=== PATIENT | female | born 1950 | race Caucasian/White ===

== ENCOUNTER 2017-09-10 09:58 | Emergency (ER) | payer OTHER ==
[~2017-09-10 09:58] MED LIST: ALEN1TAB48 PO; ARIC5TAB PO; ATOR20TA15 PO; ATOR20TA42 PO; GABA100C4 PO; LEVE500 PO; MULTTAB67 PO; NAPR220C22 PO; OMEP20TA93 PO; OMPR20CCR PO; VALP250 PO; VITA10002 PO; VITA100020 PO; VITA20003 PO
[2017-09-10 10:04] VITALS: BP 169/105; PULSE 97; RESP 16; TEMP 97.7; O2SAT 97
[2017-09-10] MEDS ORDERED: DONE5TAB7 PO (10:22)
--- NOTE | 2017-09-10 11:10 | RADRPT ---
EXAM DATE/TIME: 09/10/2017 10:59 [facility] COMPARISON: CT BRAIN W/O CONTRAST, February 12, 2017, 19:03. INDICATIONS : Hands trembling for two days. RADIATION DOSE: 58.92 CTDIvol (mGy) MEDICAL HISTORY : Hypertension. Gastroesophageal reflux disease. Glioblastoma. SURGICAL HISTORY : Craniotomy. section. Glioblastoma tumor removed ten years ago times two. ENCOUNTER: Initial ACUITY: 2 days PAIN SCALE: 0/10 LOCATION: cranial TECHNIQUE: Multiple contiguous axial images were obtained of the head. Using automated exposure control and adj ustment of the mA and/or kV according to patient size, radiation dose was kept as low as reasonably a chievable to obtain optimal diagnostic quality images. DICOM format image data is available electro nically for review and comparison. FINDINGS: Diffuse encephalomalacia is noted involving the left cerebral hemisphere. Ex vacuo dilatation is note d involving the left lateral ventricle. The findings are stable compared to previous examination in J francisca 2017. No acute infarct, acute hemorrhage, midline shift or extra-axial fluid collections are note d. Left sided craniotomy changes are again noted and stable. CONCLUSION: 1. No significant change compared to 02/12/17. 2. No acute infarct, acute hemorrhage, midline shift or extra-axial fluid collections. Jeremias Monk MD on September 10, 2017 at 11:06 Board Certified Radiologist. This report was verified electronically.
--- NOTE | 2017-09-10 11:20 | PD ---
HPI Chief Complaint: General Weakness Time Seen by Provider: 10:09 Travel History International Travel<30 days: No Contact w/Intl Traveler<30days: No Traveled to known affect area: No History of Present Illness HPI This 67-year-old female is brought for generalized weakness. She has a history of glioblastoma deformed since 2003. She had several surgeries. She has had chemotherapy and radiation. She is cared for at home by her . She has right-sided weakness. She has a history of seizures though she has not had seizures recently. She has poor balance. She sees Dr. Phillips and Dr. Giles. She has chronic problems with speech. She walks with assistance. Her says she has not been sleeping well recently because there are people that live close to her that are very noisy at night. He feels this may be causing her to feel weaker than usual. She has occasional tremors of her arms. Her who is her caregiver thinks that she is weaker than usual due to not sleeping well due to the noise in her apartment [facility] Past Medical History Arthritis: Yes Asthma: No Autoimmune Disease: No Blood Disorders: No Heart Rhythm Problems: No Cancer: Yes (GLIOBLASTOMA MULTIFORME) Cardiovascular Problems: Yes High Cholesterol: Yes Chemotherapy: No (2004) Chest Pain: No Congestive Heart Failure: No COPD: No Cerebrovascular Accident: Yes Diabetes: No Patient Takes Glucophage: No Diminished Hearing: No Endocrine: No Gastrointestinal Disorders: Yes GERD: Yes Genitourinary: No Headaches: No Hiatal Hernia: No Hypertension: Yes Immune Disorder: No Implanted Vascular Access Dvce: No Kidney Stones: No Musculoskeletal: Yes Neurologic: Yes Psychiatric: No Reproductive: No Respiratory: Yes Immunizations Current: Yes Migraines: No Radiation Therapy: Yes (2004) Renal Failure: No Seizures: Yes Sleep Apnea: No Thyroid Disease: No Ulcer: No ?: Not Menopausal: Yes : 1 Para: 1 Ovarian Cysts: Yes Past Surgical History Abdominal Surgery: No AICD: No Arteriovenous Shunt: No Cardiac Surgery: No Section: Yes Ear Surgery: No Endocrine Surgery: No Eye Surgery: No Genitourinary Surgery: No Gynecologic Surgery: No Insulin Pump: No Joint Replacement: No Neurologic Surgery: Yes (BRAIN TUMOR REMOVED X2 10 YEARS AGO) Oral Surgery: No Pacemaker: No Thoracic Surgery: No Other Surgery: Yes Social History Alcohol Use: No Tobacco Use: No Substance Use: No Allergies-Medications (Allergen,Severity, Reaction): Coded Allergies: latex (Unverified Allergy, Severe, Rash, 09/10/17) penicillin G (Unverified Allergy, Severe, 09/10/17) phenytoin (Unverified Allergy, Severe, Rash, 09/10/17) Reported Meds & Prescriptions Reported Meds & Active Scripts Active Depakene (Valproic Acid) 250 Mg Cap 250 Mg PO Q12HR Vitamin B-12 Extended Rel (Miscellaneous Medication) 1,000 Mcg Tab 1,000 Mcg PO DAILY 30 Days Reported Donepezil 5 Mg Tab 5 Mg PO HS Vitamin D (Cholecalciferol) 2,000 Unit Tab 1 Tab PO DAILY Vitamin B-12 (Cyanocobalamin) 1,000 Mcg Tab 1,000 Mcg PO DAILY Omeprazole 20 Mg Tab 20 Mg PO DAILY Gabapentin 100 Mg Cap 100 Mg PO TID Alendronate (Alendronate Sodium) 70 Mg Tab 70 Mg PO Q7D Atorvastatin (Atorvastatin Calcium) 20 Mg Tab 20 Mg PO HS Multiple Vitamin 1 Tab 2 Tab PO DAILY Review of Systems General / Constitutional: No: Fever, Chills Eyes: No: Diploplia HENT: Positive: Headaches, No: Sore Throat Cardiovascular: No: Chest Pain or Discomfort Respiratory: No: Cough Gastrointestinal: No: Nausea, Vomiting Genitourinary: No: Urgency, Dysuria Skin: No Rash, No Itching Neurologic: Positive: Weakness, No: Dizziness Endocrine: No: Cold Intolerance Hematologic/Lymphatic: No: Easy Bruising Physical Exam Narrative GENERAL: Well-developed female SKIN: Focused skin assessment warm/dry. HEAD: Atraumatic. Normocephalic. EYES: Pupils equal and round. No scleral icterus. No injection or drainage. ENT: No nasal bleeding or discharge. Mucous membranes pink and moist. NECK: Trachea midline. No JVD. CARDIOVASCULAR: Regular rate and rhythm. No murmur appreciated. RESPIRATORY: No accessory muscle use. Clear to auscultation. Breath sounds equal bilaterally. GASTROINTESTINAL: Abdomen soft, non-tender, nondistended. Hepatic and splenic margins not palpable. MUSCULOSKELETAL: No obvious deformities. No clubbing. No cyanosis. No edema. NEUROLOGICAL: Awake and speech is extremely limited. sHe follows some simple commands but ignores others, she is weaker on the right side than the left Data Data Last Documented VS Vital Signs Date Time Temp Pulse Resp B/P (MAP) Pulse Ox O2 Delivery O2 Flow Rate FiO2 09/10/17 11:47 75 16 171/79 (109) 96 Room Air 09/10/17 10:04 97.7 Orders Orders Complete Blood Count With Diff (09/10/17 10:35) Comprehensive Metabolic Panel (09/10/17 10:35) Valproic Acid (Depakene) (09/10/17 10:35) Ct Brain W/O Iv Contrast(Rout) (09/10/17 10:35) Labs Laboratory Tests Test 09/10/17 11:30 White Blood Count 6.1 TH/MM3 Red Blood Count 4.22 MIL/MM3 Hemoglobin 12.6 GM/DL Hematocrit 36.8 % Mean Corpuscular Volume 87.2 FL Mean Corpuscular Hemoglobin 29.9 PG Mean Corpuscular Hemoglobin Concent 34.3 % Red Cell Distribution Width 12.2 % Platelet Count 277 TH/MM3 Mean Platelet Volume 8.5 FL Neutrophils (%) (Auto) 69.4 % Lymphocytes (%) (Auto) 18.4 % Monocytes (%) (Auto) 7.9 % Eosinophils (%) (Auto) 1.6 % Basophils (%) (Auto) 2.7 % Neutrophils # (Auto) 4.2 TH/MM3 Lymphocytes # (Auto) 1.1 TH/MM3 Monocytes # (Auto) 0.5 TH/MM3 Eosinophils # (Auto) 0.1 TH/MM3 Basophils # (Auto) 0.2 TH/MM3 CBC Comment DIFF FINAL Differential Comment Blood Urea Nitrogen 13 MG/DL Creatinine 0.78 MG/DL Random Glucose 89 MG/DL Total Protein 7.0 GM/DL Albumin 3.5 GM/DL Calcium Level 8.6 MG/DL Alkaline Phosphatase 124 U/L Aspartate Amino Transf (AST/SGOT) 16 U/L Alanine Aminotransferase (ALT/SGPT) 22 U/L Total Bilirubin 0.8 MG/DL Sodium Level 135 MEQ/L Potassium Level 4.2 MEQ/L Chloride Level 100 MEQ/L Carbon Dioxide Level 29.4 MEQ/L Anion Gap 6 MEQ/L Estimat Glomerular Filtration Rate 73 ML/MIN [facility] Medical Decision Making Medical Screen Exam Complete: Yes Emergency Medical Condition: Yes Medical Record Reviewed: Yes Differential Diagnosis Differential includes subdural, progression of tumor, electrolyte imbalance, Narrative Course CT is unchanged from previous CTs. Lab work is unremarkable. A pruritic acid level has been ordered and is pending. Patient is stable for discharge. Her who seems very familiar with her feels that she is a little bit weaker than usual because of the lack of sleep. I will prescribe a trial of Restoril. He says that he is working on moving to get her away from the noise Diagnosis Primary Impression: Glioblastoma multiforme of brain Additional Impression: Insomnia Scripts Temazepam (Restoril) 7.5 Mg Cap 7.5 MG PO HS Y for INSOMNIA, #10 CAP 0 Refills Prov: Paulo Mathur MD 09/10/17 Disposition: DISCHARGE HOME Condition: Stable Paulo Mathur MD Sep 10, 2017 11:20
[2017-09-10 11:32] VITALS: BP 200/91; PULSE 74; RESP 16; O2SAT 97
[2017-09-10 11:45] LABS: AUTOMATED NEUTROPHIL # 4.2 TH/MM3 (1.8-7.7); BASOPHIL # 0.2 TH/MM3 (0-0.2); BASOPHIL % 2.7 % (0.0-2.0); CHLORIDE 100 MEQ/L (98-107); EOSINOPHIL # 0.1 TH/MM3 (0-0.4); EOSINOPHIL % 1.6 % (0.0-4.0); HEMATOCRIT 36.8 % (35.0-46.0); HEMOGLOBIN 12.6 GM/DL (11.6-15.3); LYMPH % 18.4 % (9.0-44.0); LYMPHOCYTE # 1.1 TH/MM3 (1.0-4.8); MEAN CELL VOLUME 87.2 FL (80.0-100.0); MEAN CORPUSCULAR HEMOGLOBIN 29.9 PG (27.0-34.0); MEAN CORPUSCULAR HGB CONC 34.3 % (32.0-36.0); MEAN PLATELET VOLUME 8.5 FL (7.0-11.0); MONO % 7.9 % (0.0-8.0); MONOCYTE # 0.5 TH/MM3 (0-0.9); NEUT % 69.4 % (16.0-70.0); PLATELET COUNT 277 TH/MM3 (150-450); RED BLOOD COUNT 4.22 MIL/MM3 (4.00-5.30); RED CELL DISTRIBUTION WIDTH 12.2 % (11.6-17.2); SODIUM (NA) 135 MEQ/L (136-145); WHITE BLOOD COUNT 6.1 TH/MM3 (4.0-11.0)
[2017-09-10 11:47] VITALS: BP 171/79; PULSE 75; RESP 16; O2SAT 96
[2017-09-10 11:48] LABS: CALCIUM 8.6 MG/DL (8.5-10.1); GLUCOSE,RANDOM 89 MG/DL (74-106)
[2017-09-10 11:49] LABS: ALBUMIN 3.5 GM/DL (3.4-5.0); BICARBONATE 29.4 MEQ/L (21.0-32.0); BLOOD UREA NITROGEN 13 MG/DL (7-18)
[2017-09-10 11:52] LABS: ALT (GPT) 22 U/L (10-53); AST (GOT) 16 U/L (15-37); CREATININE 0.78 MG/DL (0.50-1.00); GLOMERULAR FILTRATION RATE 73 ML/MIN (>89)
[2017-09-10 11:54] LABS: TOTAL BILIRUBIN ADULT 0.8 MG/DL (0.2-1.0)
[2017-09-10 11:55] LABS: ALKALINE PHOSPHATASE 124 U/L (45-117)
[2017-09-10] MEDS ORDERED: TEMA7.5C9 PO (12:59)
[2017-09-10 13:11] VITALS: BP 170/78
== END 2017-09-10 13:27 | disposition home or self-care (01) ==
LOC: PHED 09:58
DX: C71.9 Malignant neoplasm of brain, unspecified (principal); G47.00 Insomnia, unspecified; E78.00 Pure hypercholesterolemia, unspecified; I10 Essential (primary) hypertension; K21.9 Gastro-esophageal reflux disease without esophagitis; Z92.21 Personal history of antineoplastic chemotherapy; Z92.3 Personal history of irradiation; Z86.73 Personal history of transient ischemic attack (TIA), and cerebral infarction without residual deficits
CPT/HCPCS: 70450; 80053; 80164; 85025; 99284

== ENCOUNTER 2017-10-01 14:41 | Emergency (ER) | payer OTHER ==
[~2017-10-01] VITALS: Ht 167.6 cm; Wt 86.0 kg
[~2017-10-01 14:41] MED LIST changes: -HYDR-3516 PO
[2017-10-01 14:45] VITALS: BP 144/81; PULSE 98; RESP 18; TEMP 98.2; O2SAT 94
--- NOTE | 2017-10-01 15:09 | PD ---
HPI Chief Complaint: Fall Time Seen by Provider: 14:53 Travel History International Travel<30 days: No Contact w/Intl Traveler<30days: No Traveled to known affect area: No History of Present Illness HPI 67-year-old female that presents to the ED for evaluation of right ankle and foot pain. Patient has had this since injury today. Per patient she stepped on her foot and she's been having pain since. 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 Her had a get about. She denies falling or hitting her head. No pain anywhere else. Mainly the pain is in the foot itself. No urinary or bowel movement issues. No back or neck pain. Pain. Patient is 6 out of 10. Has not seen anybody for this. Injury occurred this morning. No prior injuries to this foot. PFSH Past Medical History Arthritis: Yes Asthma: No Autoimmune Disease: No Blood Disorders: No Heart Rhythm Problems: No Cancer: Yes (GLIOBLASTOMA MULTIFORME) Cardiovascular Problems: Yes High Cholesterol: Yes Chemotherapy: Yes Chest Pain: No Congestive Heart Failure: No COPD: No Cerebrovascular Accident: Yes Diabetes: No Diminished Hearing: No Endocrine: No Gastrointestinal Disorders: Yes GERD: Yes Genitourinary: No Headaches: No Hiatal Hernia: No Hypertension: Yes Immune Disorder: No Implanted Vascular Access Dvce: No Kidney Stones: No Musculoskeletal: Yes Neurologic: Yes Psychiatric: No Reproductive: No Respiratory: Yes Immunizations Current: Yes Migraines: No Radiation Therapy: Yes (2004) Renal Failure: No Seizures: Yes Sleep Apnea: No Thyroid Disease: No Ulcer: No ?: Not Menopausal: Yes : 1 Para: 1 Ovarian Cysts: Yes Past Surgical History Abdominal Surgery: No AICD: No Arteriovenous Shunt: No Cardiac Surgery: No Section: Yes Ear Surgery: No Endocrine Surgery: No Eye Surgery: No Genitourinary Surgery: No Gynecologic Surgery: No Insulin Pump: No Joint Replacement: No Neurologic Surgery: Yes (BRAIN TUMOR REMOVED X2 10 YEARS AGO) Oral Surgery: No Pacemaker: No Thoracic Surgery: No Other Surgery: Yes Social History Alcohol Use: No Tobacco Use: No Substance Use: No Allergies-Medications (Allergen,Severity, Reaction): Coded Allergies: latex (Unverified Allergy, Severe, Rash, 09/10/17) penicillin G (Unverified Allergy, Severe, 09/10/17) phenytoin (Unverified Allergy, Severe, Rash, 2/5/18) Reported Meds & Prescriptions Reported Meds & Active Scripts Active Restoril (Temazepam) 7.5 Mg Cap 7.5 Mg PO HS PRN Depakene (Valproic Acid) 250 Mg Cap 250 Mg PO Q12HR Vitamin B-12 Extended Rel (Miscellaneous Medication) 1,000 Mcg Tab 1,000 Mcg PO DAILY 30 Days Reported Donepezil 5 Mg Tab 5 Mg PO HS Vitamin D (Cholecalciferol) 2,000 Unit Tab 1 Tab PO DAILY Vitamin B-12 (Cyanocobalamin) 1,000 Mcg Tab 1,000 Mcg PO DAILY Omeprazole 20 Mg Tab 20 Mg PO DAILY Gabapentin 100 Mg Cap 100 Mg PO TID Alendronate (Alendronate Sodium) 70 Mg Tab 70 Mg PO Q7D Atorvastatin (Atorvastatin Calcium) 20 Mg Tab 20 Mg PO HS Multiple Vitamin 1 Tab 2 Tab PO DAILY Review of Systems Except as stated in HPI: all other systems reviewed are Neg Physical Exam Narrative GENERAL: SKIN: Warm and dry. HEAD: Atraumatic. Normocephalic. EYES: Pupils equal and round. No scleral icterus. No injection or drainage. ENT: No nasal bleeding or discharge. Mucous membranes pink and moist. Tongue is midline. No uvula deviation. NECK: Trachea midline. No JVD. CARDIOVASCULAR: Regular rate and rhythm. No murmurs, S3, S4. RESPIRATORY: No accessory muscle use. Clear to auscultation. Breath sounds equal bilaterally. GASTROINTESTINAL: Abdomen soft, non-tender, nondistended. Hepatic and splenic margins not palpable. MUSCULOSKELETAL: Extremities without clubbing, cyanosis, or edema. No obvious deformities. Full range of motion of the right lower extremity. 2+ pulses bilaterally. Some weakness noted on the computer to the left this appears to be chronic. Patient does have some bruising noted on the dorsal aspect of the right foot in the midfoot. Some reproducible pain on the mid plantar foot. Sensation intact bilaterally. No open sores. NEUROLOGICAL: Awake and alert. No obvious cranial nerve deficits. Motor grossly within normal limits. Five out of 5 muscle strength in the arms and legs. Normal speech. PSYCHIATRIC: Appropriate mood and affect; insight and judgment normal. Data Data Last Documented VS Vital Signs Date Time Temp Pulse Resp B/P (MAP) Pulse Ox O2 Delivery O2 Flow Rate FiO2 10/01/17 14:45 98.2 98 18 144/81 (102) 94 Orders Orders Ankle, Complete ([id number]) (10/01/17 ) Foot, Complete ([id number]) (10/01/17 ) MDM Medical Decision Making Medical Screen Exam Complete: Yes Emergency Medical Condition: Yes Medical Record Reviewed: Yes Differential Diagnosis Fracture versus sprain versus strain versus bruise versus contusion Narrative Course 67-year-old female that presents to the ED for evaluation of right foot injury. Patient was properly examined and was found to have signs and symptoms concerning for possible bony injuries. X-rays were done. Gael Reyes Oct 01, 2017 15:09
--- NOTE | 2017-10-01 15:24 | RADRPT ---
EXAM DATE/TIME: 10/01/2017 14:53 [facility] COMPARISON: No previous studies available for comparison. INDICATIONS : Right ankle pain and bruising post fall. MEDICAL HISTORY : Hypertension. Gastroesophageal reflux disease. Glioblastoma. SURGICAL HISTORY : Craniotomy. section. Glioblastoma tumor removed ten years ago ENCOUNTER: Initial ACUITY: 1 day PAIN SCORE: 5/10 LOCATION: Right lateral ankle FINDINGS: 3 views of the right ankle demonstrate no fracture or dislocation. The bones are undermineralized. An kle mortise is intact. There are mild degenerative changes in the midfoot. There is lateral and anter ior ankle soft tissue swelling with subcutaneous edema. CONCLUSION: Subcutaneous edema and soft tissue swelling on the lateral and anterior aspect of the right ankle. No fracture is identified. Lev Sylvester MD on October 01, 2017 at 15:22 Board Certified Radiologist. This report was verified electronically.
--- NOTE | 2017-10-01 15:26 | RADRPT ---
EXAM DATE/TIME: 10/01/2017 14:59 [facility] COMPARISON: No previous studies available for comparison. INDICATIONS : Right foot pain and bruising post fall MEDICAL HISTORY : Hypertension. Gastroesophageal reflux disease. Glioblastoma SURGICAL HISTORY : Craniotomy. section. Glioblastoma tumor removed ten years ago ENCOUNTER: Initial ACUITY: 1 day PAIN SCORE: 6/10 LOCATION: Right anterior foot FINDINGS: 3 views of the right foot demonstrate a transverse nondisplaced fracture of the proximal fourth metat arsal metaphysis. There is a suspected fracture of the proximal third metatarsal metaphysis as well. Lisfranc joint appears intact. No dislocation is present. There is soft tissue swelling over the dors al aspect of the foot. CONCLUSION: There are transverse nondisplaced fractures of the proximal third and fourth metatarsal metaphyses. Lev Sylvester MD on October 01, 2017 at 15:23 Board Certified Radiologist. This report was verified electronically.
[2017-10-01] MEDS ORDERED: HYDR-3516 PO (16:08)
--- NOTE | 2017-10-01 16:18 | PD ---
Physical Exam Date Seen by Provider: Oct 01, 2017 Time Seen by Provider: 16:15 Narrative This is a continuation of my previous note. Please refer to my previous note. Unfortunately my attendings and my note before I could finish it. Again this is just a continuation of the previous note. Data Data Last Documented VS Vital Signs Date Time Temp Pulse Resp B/P (MAP) Pulse Ox O2 Delivery O2 Flow Rate FiO2 10/01/17 14:45 98.2 98 18 144/81 (102) 94 Orders Orders Ankle, Complete ([id number]) (10/01/17 ) Foot, Complete ([id number]) (10/01/17 ) Ed Discharge Order (10/01/17 16:14) MDM Medical Record Reviewed: Yes Supervised Visit with CARLOS EDUARDO: No Interpretation(s) X-ray of the right foot did show a nondisplaced fracture of the third and fourth metatarsals X-ray of the right ankle show no sign of bony injury with soft tissue swelling. Differential Diagnosis Fracture versus sprain versus strain versus bruise versus contusion Narrative Course 67-year-old female that presents to the ED for evaluation of injury to her right foot. Patient was properly examined and was found to have signs and symptoms concerning for fractures. X-rays were ordered and did show fractures. I discussed the case with Dr. Henderson who recommends walking boot. Partially with no have a walking boot in this hospital. I was told by charge nurse that patient can get the walking boot at the main hospital if given the [employer] referral form. This was given to the patient. Patient was given a prescription for Lortab. Case was discussed in my attending who agrees with plan. Patient was told to follow with chief building inspector. See ED worsening symptoms. Follow up with PCP. Diagnosis Primary Impression: Metatarsal bone fracture Qualified Codes: S92.344A - Nondisplaced fracture of fourth metatarsal bone, right foot, initial encounter for closed fracture Referrals: Errol Ball DPM, Jessica Isabel DPM Patient Instructions: General Instructions Additional Instruction: Take medications as prescribed. Follow-up with PCP. See ED for any worsening symptoms. Do not drink or drive while taking pain medication. Apply ice or heat as needed for pain Med/Other Pt SpecificInfo: Prescription(s) given Scripts Hydrocodone/Acetaminophen (Hydrocodone-Acetamin 5-325 mg) 5 Mg-325 Mg Tablet 1 TAB PO Q6HR Y for PAIN SCALE 1 TO 10, #12 Prov: Mary Jo Busby MD 10/01/17 Disposition: 01 DISCHARGE HOME Condition: Stable Gael Reyes Oct 01, 2017 16:18
== END 2017-10-01 16:50 | disposition home or self-care (01) ==
LOC: PHEFT 14:41
DX: S92.344A Nondisplaced fracture of fourth metatarsal bone, right foot, initial encounter for closed fracture (principal); W51.XXXA Accidental striking against or bumped into by another person, initial encounter
CPT/HCPCS: 73610; 73630; 99283

== ENCOUNTER → 2017-10-01 | Outpatient (CLI) | payer OTHER ==
[~2017-10-01] MED LIST changes: -ARIC5TAB PO; -ATOR20TA42 PO; +DONE5TAB7 PO; +HYDR-3516 PO; -LEVE500 PO; -NAPR220C22 PO; -OMPR20CCR PO; +TEMA7.5C9 PO
== END ==
LOC: HORT 17:22
PROVIDERS: ATTEND Physician Assistant Medical
DX: Z46.89 Encounter for fitting and adjustment of other specified devices (principal)
CPT/HCPCS: L2114

== ENCOUNTER 2017-10-06 18:33 | Observation (INO) | payer OTHER ==
[~2017-10-06] VITALS: Ht 152.4 cm; Wt 89.9 kg
[~2017-10-06 18:33] MED LIST changes: +HYDR-3516 PO
[2017-10-06 18:39] VITALS: BP 138/77; PULSE 87; RESP 18; TEMP 98.3; O2SAT 97
--- NOTE | 2017-10-06 19:45 | PD ---
HPI Chief Complaint: Fall Time Seen by Provider: 18:39 Travel History International Travel<30 days: No Contact w/Intl Traveler<30days: No Traveled to known affect area: No History of Present Illness HPI 67-year-old female that presents to the ED for evaluation of mechanical fall. Patient has been seen here by me about a week ago for a fall that she had. Patient has a history of CVA and chronic deficits to the right side and she is supposed to have assistance when walking but she apparently does not follow these and still continues to move on her own and had a fall and had a fracture to her metatarsals. She was put in a walking boot by me and has been doing well since except she's had a couple falls since. She is using a walker and getting about but per significant other who takes care of the patient she's been more weak and having more falls for the past week. He is concerned because she is having a tremor that she's had on and off and she's actually been worked up by Dr. Singleton for seizures and is supposed to have an appointment next week for follow-up. Patient takes gabapentin and was put on Lortab with good results of the pain improvement but she today had another fall and has been complaining of pain to the right leg and foot as well as possible head injury. Patient does not take any blood thinners. Significant other is mainly concerned about the weakness as patient seems to be getting weak on the left leg as well and having this tremor that appears to be worsening. Patient to me does not complain of any pain but she is somewhat of a poor historian which appears to be chronic for her as last time I evaluated her she was also very minimalistic on her symptoms. [facility] Past Medical History Arthritis: Yes Asthma: No Autoimmune Disease: No Blood Disorders: No Heart Rhythm Problems: No Cancer: Yes (GLIOBLASTOMA MULTIFORME) Cardiovascular Problems: Yes High Cholesterol: Yes Chemotherapy: Yes Chest Pain: No Congestive Heart Failure: No COPD: No Cerebrovascular Accident: Yes Diabetes: No Diminished Hearing: No Endocrine: No Gastrointestinal Disorders: Yes GERD: Yes Genitourinary: No Headaches: No Hiatal Hernia: No Hypertension: Yes Immune Disorder: No Implanted Vascular Access Dvce: No Kidney Stones: No Musculoskeletal: Yes (r leg fracture) Neurologic: Yes Psychiatric: No Reproductive: No Respiratory: Yes Immunizations Current: Yes Migraines: No Radiation Therapy: Yes (2004) Renal Failure: No Seizures: Yes Sleep Apnea: No Thyroid Disease: No Ulcer: No Menopausal: Yes : 1 Para: 1 Ovarian Cysts: Yes Past Surgical History Abdominal Surgery: No AICD: No Arteriovenous Shunt: No Cardiac Surgery: No Section: Yes Ear Surgery: No Endocrine Surgery: No Eye Surgery: No Genitourinary Surgery: No Gynecologic Surgery: No Insulin Pump: No Joint Replacement: No Neurologic Surgery: Yes (BRAIN TUMOR REMOVED X2 10 YEARS AGO) Oral Surgery: No Pacemaker: No Thoracic Surgery: No Other Surgery: Yes Social History Alcohol Use: No Tobacco Use: No Substance Use: No Allergies-Medications (Allergen,Severity, Reaction): Coded Allergies: latex (Unverified Allergy, Severe, Rash, 09/10/17) penicillin G (Unverified Allergy, Severe, 09/10/17) phenytoin (Unverified Allergy, Severe, Rash, 09/10/17) Reported Meds & Prescriptions Reported Meds & Active Scripts Active Depakene (Valproic Acid) 250 Mg Cap 250 Mg PO Q12HR Reported Donepezil 5 Mg Tab 10 Mg PO HS Vitamin D (Cholecalciferol) 2,000 Unit Tab 1 Tab PO DAILY Vitamin B-12 (Cyanocobalamin) 1,000 Mcg Tab 1,000 Mcg PO DAILY Omeprazole 20 Mg Tab 20 Mg PO DAILY Gabapentin 100 Mg Cap 100 Mg PO TID Alendronate (Alendronate Sodium) 70 Mg Tab 70 Mg PO Q7D Atorvastatin (Atorvastatin Calcium) 20 Mg Tab 20 Mg PO HS Multiple Vitamin 1 Tab 2 Tab PO DAILY Review of Systems Except as stated in HPI: all other systems reviewed are Neg Physical Exam Narrative GENERAL: SKIN: Warm and dry. HEAD: Atraumatic. Normocephalic. EYES: Pupils equal and round. No scleral icterus. No injection or drainage. ENT: No nasal bleeding or discharge. Mucous membranes pink and moist. Tongue is midline. No uvula deviation. NECK: Trachea midline. No JVD. CARDIOVASCULAR: Regular rate and rhythm. RESPIRATORY: No accessory muscle use. Clear to auscultation. Breath sounds equal bilaterally. GASTROINTESTINAL: Abdomen soft, non-tender, nondistended. Hepatic and splenic margins not palpable. MUSCULOSKELETAL: Extremities without clubbing, cyanosis, or edema. No obvious deformities. Patient has full range of motion of the upper extremities without obvious deformity or swelling. No obvious pain noted. No lumbar, thoracic, cervical spine tenderness to palpation. Patient does have pain reproducible on the right ankle as well as the foot. Patient has a walking boot on the right leg. No obvious deformity to the left leg. No obvious hip pain. Neurovascularly intact otherwise. NEUROLOGICAL: Awake and alert. No obvious cranial nerve deficits. Motor grossly within normal limits. Five out of 5 muscle strength in the arms and legs. Normal speech. PSYCHIATRIC: Appropriate mood and affect; insight and judgment normal. Data Data Last Documented VS Vital Signs Date Time Temp Pulse Resp B/P (MAP) Pulse Ox O2 Delivery O2 Flow Rate FiO2 10/06/17 18:39 98.3 87 18 138/77 (97) 97 Orders Orders Foot, Complete (Ipi1jax) (10/06/17 18:37) Tibia/Fibula (Ap/Lat) (10/06/17 18:37) Ice/Cold Pack (10/06/17 18:37) Ct Brain W/O Iv Contrast(Rout) (10/06/17 ) Electrocardiogram (10/06/17 19:10) Complete Blood Count With Diff (10/06/17 19:10) Comprehensive Metabolic Panel (10/06/17 19:10) Creatine Kinase (Cpk) (10/06/17 19:10) Prothrombin Time / Inr (Pt) (10/06/17 19:10) Act Partial Throm Time (Ptt) (10/06/17 19:10) Urinalysis - C+S If Indicated (10/06/17 19:10) Magnesium (Mg) (10/06/17 19:10) Thyroid Stimulating Hormone (10/06/17 19:10) Electrocardiogram (10/06/17 ) Wrist, Limited (Ap&Lat) (10/06/17 ) Wrist, Limited (Ap&Lat) (10/06/17 ) Cath For Specimen (10/06/17 19:30) MDM Medical Decision Making Medical Screen Exam Complete: Yes Emergency Medical Condition: Yes Medical Record Reviewed: Yes Differential Diagnosis Fracture versus sprain versus strain versus weakness versus head injury versus altered mental status versus UA Narrative Course 67-year-old female that presents to the ED for evaluation of fall. Patient was properly examined and was found to have signs and symptoms consistent with fall. Patient does appear to also have weakness which appears to be worsening. Unclear if this is related to metabolic abnormality or something else. He recommended labs and imaging because of this. Case was discussed with my attending Dr. Orellana and sign out to him. Gael Reyes Oct 06, 2017 19:45
--- NOTE | 2017-10-06 19:48 | RADRPT ---
EXAM DATE/TIME: 10/06/2017 19:31 [facility] COMPARISON: CT BRAIN W/O CONTRAST, September 10, 2017, 10:59. INDICATIONS : Trauma. Fall. RADIATION DOSE: 40.83 CTDIvol (mGy) MEDICAL HISTORY : Cerebrovascular disease. Seizures. Gastroesophageal reflux disease.Hypertension. Glioblastoma mulifo rme. SURGICAL HISTORY : Brain tumor removed. ENCOUNTER: Initial ACUITY: 1 day PAIN SCALE: 2/10 LOCATION: Bilateral cranial TECHNIQUE: Multiple contiguous axial images were obtained of the head. Using automated exposure control and adj ustment of the mA and/or kV according to patient size, radiation dose was kept as low as reasonably a chievable to obtain optimal diagnostic quality images. DICOM format image data is available electro nically for review and comparison. FINDINGS: There is previous left temporal craniotomy and frontal craniotomy for previous tumor resection. There is encephalomalacia in the left temporal lobe and frontal lobe. Ex vacuo dilatation of the left late ral ventricle and temporal horn. There is atrophy and white matter disease. There are no signs of acu te infarct, intracranial hemorrhage or mass effect. No fractures. CONCLUSION: No acute disease. Mario Bhakta MD on October 06, 2017 at 19:46 Board Certified Radiologist. This report was verified electronically.
--- NOTE | 2017-10-06 20:04 | PD ---
Data Data Last Documented VS Vital Signs Date Time Temp Pulse Resp B/P (MAP) Pulse Ox O2 Delivery O2 Flow Rate FiO2 10/06/17 18:39 98.3 87 18 138/77 (97) 97 Orders Orders Tibia/Fibula (Ap/Lat) (10/06/17 18:37) Ice/Cold Pack (10/06/17 18:37) Ct Brain W/O Iv Contrast(Rout) (10/06/17 ) Electrocardiogram (10/06/17 19:10) Complete Blood Count With Diff (10/06/17 19:10) Comprehensive Metabolic Panel (10/06/17 19:10) Creatine Kinase (Cpk) (10/06/17 19:10) Prothrombin Time / Inr (Pt) (10/06/17 19:10) Act Partial Throm Time (Ptt) (10/06/17 19:10) Urinalysis - C+S If Indicated (10/06/17 19:10) Magnesium (Mg) (10/06/17 19:10) Thyroid Stimulating Hormone (10/06/17 19:10) Wrist, Limited (Ap&Lat) (10/06/17 ) Wrist, Limited (Ap&Lat) (10/06/17 ) Cath For Specimen (10/06/17 19:30) Urinary Catheter Management DEBORA.Q8H (10/06/17 20:12) Foot, Limited (2vws) (10/06/17 18:37) CKMB (10/06/17 21:28) CKMB% (10/06/17 21:28) Labs Laboratory Tests Test 10/06/17 20:25 10/06/17 21:28 Urine Color YELLOW Urine Turbidity CLEAR Urine pH 6.5 Urine Specific [place] LESS/EQUAL 1.005 Urine Protein NEG mg/dL Urine Glucose (UA) NEG mg/dL Urine Ketones NEG mg/dL Urine Occult Blood NEG Urine Nitrite NEG Urine Bilirubin NEG Urine Urobilinogen 1.0 MG/DL Urine Leukocyte Esterase NEG Urine RBC 0-3 /hpf Urine Squamous Epithelial Cells 0-5 /hpf Urine Mucus OCC /lpf Microscopic Urinalysis Comment CATH-CULT NOT IND White Blood Count 7.2 TH/MM3 Red Blood Count 3.79 MIL/MM3 Hemoglobin 11.8 GM/DL Hematocrit 33.6 % Mean Corpuscular Volume 88.6 FL Mean Corpuscular Hemoglobin 31.1 PG Mean Corpuscular Hemoglobin Concent 35.1 % Red Cell Distribution Width 12.8 % Platelet Count 329 TH/MM3 Mean Platelet Volume 7.7 FL Neutrophils (%) (Auto) 68.9 % Lymphocytes (%) (Auto) 18.9 % Monocytes (%) (Auto) 8.5 % Eosinophils (%) (Auto) 3.2 % Basophils (%) (Auto) 0.5 % Neutrophils # (Auto) 5.0 TH/MM3 Lymphocytes # (Auto) 1.4 TH/MM3 Monocytes # (Auto) 0.6 TH/MM3 Eosinophils # (Auto) 0.2 TH/MM3 Basophils # (Auto) 0.0 TH/MM3 CBC Comment DIFF FINAL Differential Comment Prothrombin Time 9.9 SEC Prothromb Time International Ratio 1.0 RATIO Activated Partial Thromboplast Time 23.2 SEC Blood Urea Nitrogen 10 MG/DL Creatinine 0.78 MG/DL Random Glucose 93 MG/DL Total Protein 6.4 GM/DL Albumin 3.4 GM/DL Calcium Level 8.1 MG/DL Magnesium Level 2.1 MG/DL Alkaline Phosphatase 93 U/L Aspartate Amino Transf (AST/SGOT) 26 U/L Alanine Aminotransferase (ALT/SGPT) 26 U/L Total Bilirubin 1.3 MG/DL Sodium Level 138 MEQ/L Potassium Level 3.6 MEQ/L Chloride Level 101 MEQ/L Carbon Dioxide Level 29.1 MEQ/L Anion Gap 8 MEQ/L Estimat Glomerular Filtration Rate 73 ML/MIN Total Creatine Kinase 208 U/L Creatine Kinase MB 0.6 NG/ML Creatine Kinase MB % 0.3 % Thyroid Stimulating Hormone 3rd Gen 1.940 uIU/ML MDM Supervised Visit with CARLOS EDUARDO: Yes Narrative Course Patient CARE assumed from Kaleb SILVERIO. This is a 67-year-old female presents emergency department with her for evaluation of multiple falls. She is actually been to our ER 3 times in the past month for similar symptoms. On physical exam she is able to follow commands in all 4 extremities, has no drift and has good strength against gravity. She does exhibit an essential tremor in all 4 extremities. states is been going on for many months. Has been seen by Dr. Glies in the past, Dr. Phillips in the past, and Dr. Deep Li is a primary care physician. She is fallen once to the point where she is broken multiple tarsal bones in her foot. Apparently she was sitting in a wheelchair today and was struggling to stand up and then fell forward onto outstretched hands may have impacted her head to. The patient is severely dysphasic at baseline. Her is quite concerned over his ability to continue take care of her at home, he has looked into placement options but is on successful he is concerned that if he takes her home again she will try to stand up in the middle the night fall and severely injured herself. Her workup here is essentially negative CT head and wrists foot shows no change in the fracture, basic labs including UA. I see other concerns of the patient's ability to function at home. I think that she would benefit for observation status for physical therapy evaluation and consideration for rehab placement. Both the patient and are all for this at this time. The patient was discussed with Jodie POSADAS for Dr. Falk who will place patient in observation status. Diagnosis Primary Impression: Frequent falls Additional Impression: Brain tumor Admitting Information Admitting Physician Requests: Observation Condition: Stable Jeremias Orellana MD Oct 06, 2017 20:04
[2017-10-06 20:43] LABS: BILIRUBIN, URINE NEG (NEG); BLOOD, URINE NEG (NEG); GLUCOSE,URINE NEG (NEG); KETONE, URINE NEG (NEG); NITRITE,URINE NEG (NEG); PH, URINE 6.5 (5.0-8.5); URINE COLOR YELLOW (YELLW/STRAW); URINE LEUKOCYTE ESTERASE NEG (NEG)
[2017-10-06 21:05] LABS: MUCUS URINE OCC /lpf (OCC); RBC, URINE 0-3 /hpf (0-3); SQUAMOUS EPITHELIAL CELL URINE 0-5 /hpf (0-5)
--- NOTE | 2017-10-06 21:20 | RADRPT ---
EXAM DATE/TIME: 10/06/2017 20:31 [facility] COMPARISON: FOOT RIGHT COMPLETE ([id number]), October 01, 2017, 14:59. INDICATIONS : Pain post fall. MEDICAL HISTORY : None. SURGICAL HISTORY : None. ENCOUNTER: Initial ACUITY: 1 day PAIN SCORE: Non-responsive. LOCATION: Right Foot. FINDINGS: There are fractures of the third and fourth metatarsal bases again seen, the third is not as well-vis ualized on this limited exam. The bone density is diminished. No other fractures. CONCLUSION: Metatarsal fractures are again seen. Mario Bhakta MD on October 06, 2017 at 21:17 Board Certified Radiologist. This report was verified electronically.
--- NOTE | 2017-10-06 21:20 | RADRPT ---
EXAM DATE/TIME: 10/06/2017 20:31 [facility] COMPARISON: No previous studies available for comparison. INDICATIONS : Pain post fall. MEDICAL HISTORY : None. SURGICAL HISTORY : None. ENCOUNTER: Initial ACUITY: 1 day PAIN SCORE: Non-responsive. LOCATION: Right Lower leg. FINDINGS: Two view examination of the right tibia demonstrates no evidence of fracture or dislocation. Bony mi neralization is normal. The soft tissue structures are intact. CONCLUSION: No acute disease. Mario Bhakta MD on October 06, 2017 at 21:19 Board Certified Radiologist. This report was verified electronically.
--- NOTE | 2017-10-06 21:21 | RADRPT ---
EXAM DATE/TIME: 10/06/2017 20:31 [facility] COMPARISON: No previous studies available for comparison. INDICATIONS : Pain post fall. MEDICAL HISTORY : None. SURGICAL HISTORY : None. ENCOUNTER: Initial ACUITY: 1 day PAIN SCORE: Non-responsive. LOCATION: Left Wrist. FINDINGS: Two view examination of the left wrist demonstrates no soft tissue swelling, dislocation, or fracture . The joint spaces are maintained. Bony mineralization is normal. Nonacute well-corticated ulnar s tyloid ossific fragment seen. CONCLUSION: No acute disease. Mario Bhakta MD on October 06, 2017 at 21:19 Board Certified Radiologist. This report was verified electronically.
--- NOTE | 2017-10-06 21:21 | RADRPT ---
EXAM DATE/TIME: 10/06/2017 20:31 [facility] COMPARISON: No previous studies available for comparison. INDICATIONS : Pain post fall. MEDICAL HISTORY : None. SURGICAL HISTORY : None. ENCOUNTER: Initial ACUITY: 1 day PAIN SCORE: Non-responsive. LOCATION: Right Wrist. FINDINGS: Two view examination of the right wrist demonstrates no soft tissue swelling, dislocation, or fractur e. The joint spaces are maintained. Bony mineralization is normal. There is a well-corticated ossi fic density adjacent to the ulna styloid. No acute fractures are seen. CONCLUSION: No acute disease. Mario Bhakta MD on October 06, 2017 at 21:20 Board Certified Radiologist. This report was verified electronically.
[2017-10-06 21:41] LABS: BASOPHIL % 0.5 % (0.0-2.0); EOSINOPHIL # 0.2 TH/MM3 (0-0.4); EOSINOPHIL % 3.2 % (0.0-4.0); HEMATOCRIT 33.6 % (35.0-46.0); HEMOGLOBIN 11.8 GM/DL (11.6-15.3); LYMPH % 18.9 % (9.0-44.0); LYMPHOCYTE # 1.4 TH/MM3 (1.0-4.8); MEAN CELL VOLUME 88.6 FL (80.0-100.0); MEAN CORPUSCULAR HEMOGLOBIN 31.1 PG (27.0-34.0); MEAN CORPUSCULAR HGB CONC 35.1 % (32.0-36.0); MEAN PLATELET VOLUME 7.7 FL (7.0-11.0); MONO % 8.5 % (0.0-8.0); MONOCYTE # 0.6 TH/MM3 (0-0.9); NEUT % 68.9 % (16.0-70.0); PLATELET COUNT 329 TH/MM3 (150-450); RED BLOOD COUNT 3.79 MIL/MM3 (4.00-5.30); RED CELL DISTRIBUTION WIDTH 12.8 % (11.6-17.2); WHITE BLOOD COUNT 7.2 TH/MM3 (4.0-11.0)
[2017-10-06 21:58] LABS: CHLORIDE 101 MEQ/L (98-107); SODIUM (NA) 138 MEQ/L (136-145)
[2017-10-06 22:01] LABS: ALBUMIN 3.4 GM/DL (3.4-5.0); BICARBONATE 29.1 MEQ/L (21.0-32.0); CALCIUM 8.1 MG/DL (8.5-10.1)
[2017-10-06 22:02] LABS: BLOOD UREA NITROGEN 10 MG/DL (7-18); GLUCOSE,RANDOM 93 MG/DL (74-106); MAGNESIUM 2.1 MG/DL (1.5-2.5)
[2017-10-06 22:03] LABS: PROTHROMBIN TIME - PATIENT 9.9 SEC (9.8-11.6)
[2017-10-06 22:05] LABS: ALT (GPT) 26 U/L (10-53); AST (GOT) 26 U/L (15-37); CREATININE 0.78 MG/DL (0.50-1.00); GLOMERULAR FILTRATION RATE 73 ML/MIN (>89)
[2017-10-06 22:06] LABS: TOTAL BILIRUBIN ADULT 1.3 MG/DL (0.2-1.0); TOTAL PROTEIN 6.4 GM/DL (6.4-8.2)
[2017-10-06 22:08] LABS: ALKALINE PHOSPHATASE 93 U/L (45-117)
[2017-10-06] MEDS ORDERED: SODIUM CHLORIDE 0.9% FLUSH 10 ML FLUSH IV FLUSH PRN (23:00)
[2017-10-06] MEDS ORDERED: NALOXONE HCL 0.4 MG/ML AMP IV PUSH PRN (23:00)
[2017-10-06 23:18] VITALS: BP 131/65; PULSE 78; RESP 14; O2SAT 98
[2017-10-07 01:05] VITALS: BP 181/77; PULSE 83; RESP 16; TEMP 98.1; O2SAT 94
[2017-10-07 07:02] LABS: BASOPHIL % 0.6 % (0.0-2.0); EOSINOPHIL # 0.2 TH/MM3 (0-0.4); EOSINOPHIL % 4.1 % (0.0-4.0); HEMATOCRIT 32.3 % (35.0-46.0); HEMOGLOBIN 11.1 GM/DL (11.6-15.3); LYMPH % 20.3 % (9.0-44.0); LYMPHOCYTE # 1.2 TH/MM3 (1.0-4.8); MEAN CELL VOLUME 88.7 FL (80.0-100.0); MEAN CORPUSCULAR HEMOGLOBIN 30.6 PG (27.0-34.0); MEAN CORPUSCULAR HGB CONC 34.5 % (32.0-36.0); MEAN PLATELET VOLUME 7.8 FL (7.0-11.0); MONO % 10.4 % (0.0-8.0); MONOCYTE # 0.6 TH/MM3 (0-0.9); NEUT % 64.6 % (16.0-70.0); PLATELET COUNT 301 TH/MM3 (150-450); RED BLOOD COUNT 3.64 MIL/MM3 (4.00-5.30); RED CELL DISTRIBUTION WIDTH 12.8 % (11.6-17.2)
[2017-10-07 07:20] LABS: BICARBONATE 28.2 MEQ/L (21.0-32.0); CALCIUM 8.1 MG/DL (8.5-10.1)
[2017-10-07 07:24] LABS: CREATININE 0.7 MG/DL (0.50-1.00)
[2017-10-07 07:50] VITALS: BP 133/70; PULSE 83; RESP 20; TEMP 98.1
[2017-10-07] MEDS: SODIUM CHLORIDE 0.9% FLUSH 10 ML FLUSH IV FLUSH SCH ×2 (07:56→21:26)
--- NOTE | 2017-10-07 09:10 | EKG ---
Date Performed: 10/06/2017 Time Performed: 21:05:12 PTAGE: 67 years EKG: Sinus rhythm MODERATE T-WAVE ABNORMALITY, CONSIDER ANTERIOR ISCHEMIA ABNORMAL ECG PREVIOUS TRACING : 02/12/2017 19.05 DOCTOR: Cole Antonio Interpretating Date/Time 10/07/2017 09:09:24
--- NOTE | 2017-10-07 10:07 | HHI.HP ---
[facility] Service [facility] Primary Care Physician Nathen Newton MD Admission Diagnosis Frequent falls, difficulty ambulating Diagnoses: Chief Complaint: Frequent falls Travel History International Travel<30 Days: No Contact w/Intl Traveler <30 Da: No Traveled to Known Affected Are: No History of Present Illness This is a 67-year-old female past medical history of glioblastoma and CVA who presented with multiple falls. Patient is a very poor historian and has expressive aphasia which is her baseline so unable to get an accurate history. Spoke to her who is at the bedside during the interview. Patient's brought her into the hospital due to multiple falls. He stated that he has been having a very hard time taking care of her and does not want to cause any further injuries. Patient seen recently due to a right foot fracture from a fall. He stated that Dr. Humphreys is seeing her. There has been no change in her baseline since she last saw her neurologist. Patient does have right-sided weakness due to her CVA. She also has tremors that is being managed by her neurologist in which she was started on Neurontin 1 month ago. At baseline patient is not able to ambulate. is having a hard time transferring patient due to his on back injuries. He stated that he wants to take her home but needs home health. He also stated that he needs the necessary tools to take care of her at home. stated that he is in the midst of moving to improve his 's life. Unable to obtain review of systems since patient is nonverbal. She does answer simple questions by nodding her head yes or no. Past Family Social History Past Medical History GERD Osteoporosis hyperlipidemia Seizures Glioblastoma multiforme (left frontal temporal parietal hemorrhage with evacuation and resection of glioblastoma multiforme s/p treated with XRT and Temodar in 2004 and then completed oral temodar for 6 months s/ptreated with radioactive antibody in [place] times three Past Surgical History 2 brain bx 01/14/2007 and 03/05/2008 both negative for recurrence. Bilateral breast bx - benign Reported Medications Depakene (Valproic Acid) 250 Mg Cap 250 Mg PO Q12HR Donepezil 5 Mg Tab 10 Mg PO HS Vitamin D (Cholecalciferol) 2,000 Unit Tab 1 Tab PO DAILY Vitamin B-12 (Cyanocobalamin) 1,000 Mcg Tab 1,000 Mcg PO DAILY Omeprazole 20 Mg Tab 20 Mg PO DAILY Gabapentin 100 Mg Cap 100 Mg PO TID Alendronate (Alendronate Sodium) 70 Mg Tab 70 Mg PO Q7D Atorvastatin (Atorvastatin Calcium) 20 Mg Tab 20 Mg PO HS Multiple Vitamin 1 Tab 2 Tab PO DAILY Allergies: Coded Allergies: latex (Unverified Allergy, Severe, Rash, 09/10/17) penicillin G (Unverified Allergy, Severe, 09/10/17) phenytoin (Unverified Allergy, Severe, Rash, 09/10/17) Active Ordered Medications Current Medications Sodium Chloride (NS Flush) 2 ml UNSCH PRN IV FLUSH FLUSH AFTER USING IV ACCESS ; Start 10/06/17 at 23:00 Sodium Chloride (NS Flush) 2 ml BID IV FLUSH Last administered on 10/07/17at 07: 56; Start 10/07/17 at 09:00 Naloxone HCl (Narcan Inj) 0.4 mg UNSCH PRN IV PUSH SEE LABEL COMMENTS; Start at 23:00 Family History Unable to obtain secondary to patient having difficulty expressing herself. Physical Exam Vital Signs Vital Signs Date Time Temp Pulse Resp B/P (MAP) Pulse Ox O2 Delivery O2 Flow Rate FiO2 10/07/17 07:50 98.1 83 20 133/70 (91) 10/07/17 01:05 98.1 83 16 181/77 (111) 94 10/06/17 23:18 78 14 131/65 (87) 98 Nasal Cannula 2.00 10/06/17 18:39 98.3 87 18 138/77 (97) 97 Physical Exam GENERAL: This is a well-nourished, well-developed patient, in no apparent distress. SKIN: No rashes, ecchymoses or lesions. Cool and dry. HEAD: Atraumatic. Normocephalic. No temporal or scalp tenderness. EYES: Pupils equal round and reactive. Extraocular motions intact. No scleral icterus. No injection or drainage. ENT: Nose without bleeding, purulent drainage or septal hematoma. Throat without erythema, tonsillar hypertrophy or exudate. Uvula midline. Airway patent. NECK: Trachea midline. No JVD or lymphadenopathy. Supple, nontender, no meningeal signs. CARDIOVASCULAR: Regular rate and rhythm without murmurs, gallops, or rubs. RESPIRATORY: Clear to auscultation. Breath sounds equal bilaterally. No wheezes , rales, or rhonchi. GASTROINTESTINAL: Abdomen soft, non-tender, nondistended. No hepato-splenomegaly , or palpable masses. No guarding. MUSCULOSKELETAL: Extremities without clubbing, cyanosis, or edema. No joint tenderness, effusion, or edema noted. No calf tenderness. Negative Homans sign bilaterally. NEUROLOGICAL: Awake and alert. Cranial nerves II through XII intact. 4 out of 5 right-sided strength. She does have some upper extremity tremors per patient has been which is her baseline. Expressive aphasia. Does understand and can nod yes or no. Laboratory Laboratory Tests Test 10/06/17 20:25 10/06/17 21:28 10/07/17 06:11 Urine Color YELLOW Urine Turbidity CLEAR Urine pH 6.5 Urine Specific [place] LESS/EQUAL 1.005 Urine Protein NEG Urine Glucose (UA) NEG Urine Ketones NEG Urine Occult Blood NEG Urine Nitrite NEG Urine Bilirubin NEG Urine Urobilinogen 1.0 Urine Leukocyte Esterase NEG Urine RBC 0-3 Urine Squamous Epithelial Cells 0-5 Urine Mucus OCC Microscopic Urinalysis Comment CATH-CULT NOT IND White Blood Count 7.2 6.0 Red Blood Count 3.79 3.64 Hemoglobin 11.8 11.1 Hematocrit 33.6 32.3 Mean Corpuscular Volume 88.6 88.7 Mean Corpuscular Hemoglobin 31.1 30.6 Mean Corpuscular Hemoglobin Concent 35.1 34.5 Red Cell Distribution Width 12.8 12.8 Platelet Count 329 301 Mean Platelet Volume 7.7 7.8 Neutrophils (%) (Auto) 68.9 64.6 Lymphocytes (%) (Auto) 18.9 20.3 Monocytes (%) (Auto) 8.5 10.4 Eosinophils (%) (Auto) 3.2 4.1 Basophils (%) (Auto) 0.5 0.6 Neutrophils # (Auto) 5.0 4.0 Lymphocytes # (Auto) 1.4 1.2 Monocytes # (Auto) 0.6 0.6 Eosinophils # (Auto) 0.2 0.2 Basophils # (Auto) 0.0 0.0 CBC Comment DIFF FINAL DIFF FINAL Differential Comment Prothrombin Time 9.9 Prothromb Time International Ratio 1.0 Activated Partial Thromboplast Time 23.2 Blood Urea Nitrogen 10 12 Creatinine 0.78 0.70 Random Glucose 93 90 Total Protein 6.4 Albumin 3.4 Calcium Level 8.1 8.1 Magnesium Level 2.1 Alkaline Phosphatase 93 Aspartate Amino Transf (AST/SGOT) 26 Alanine Aminotransferase (ALT/SGPT) 26 Total Bilirubin 1.3 Sodium Level 138 141 Potassium Level 3.6 3.9 Chloride Level 101 103 Carbon Dioxide Level 29.1 28.2 Anion Gap 8 10 Estimat Glomerular Filtration Rate 73 83 Total Creatine Kinase 208 Creatine Kinase MB 0.6 Creatine Kinase MB % 0.3 Thyroid Stimulating Hormone 3rd Gen 1.940 Result Diagram: 10/07/17 0611 10/07/17 0611 Imaging Last Impressions Tibia/Fibula X-Ray 10/06/171836 Signed Impressions: Service Date/Time: Friday, October 06, 2017 20:31 - CONCLUSION: No acute disease. Mario Bhakta MD Foot X-Ray 10/06/17 1837 Signed Impressions: Service Date/Time: Friday, October 06, 2017 20:31 - CONCLUSION: Metatarsal fractures are again seen. Mario Bhakta MD Wrist X-Ray 10/06/17 0000 Signed Impressions: Service Date/Time: Friday, October 06, 2017 20:31 - CONCLUSION: No acute disease. Mario Bhakta MD Head CT 10/06/17 0000 Signed Impressions: Service Date/Time: Friday, October 06, 2017 19:31 - CONCLUSION: No acute disease. Mario Bhakta MD Caprini VTE Risk Assessment Caprini VTE Risk Assessment: Mod/High Risk (score >= 2) Caprini Risk Assessment Model Point Value = 1 Point Value = 2 Point Value = 3 Point Value = 5 Age 41-60 Minor surgery BMI > 25 kg/m2 Swollen legs Varicose veins or History of unexplained or recurrent spontaneous Oral contraceptives or hormone replacement Sepsis (< 1 month) Serious lung disease, including pneumonia (< 1 month) Abnormal pulmonary function Acute myocardial infarction Congestive heart failure (< 1 month) History of inflammatory bowel disease Medical patient at bed rest Age 61-74 Arthroscopic surgery Major open surgery (> 45 min) Laparoscopic surgery (> 45 min) Malignancy Confined to bed (> 72 hours) Immobilizing plaster cast Central venous access Age >= 75 History of VTE Family history of VTE Factor V Leiden Prothrombin [id number] Lupus anticoagulant Anticardiolipin antibodies Elevated serum homocysteine Heparin-induced thrombocytopenia Other congenital or acquired thrombophilia Stroke (< 1 month) Elective arthroplasty Hip, pelvis, or leg fracture Acute spinal cord injury (< 1 month) Prophylaxis Regimen Total Risk Factor Score Risk Level Prophylaxis Regimen 0-1 Low Early ambulation 2 Moderate Order ONE of the following: *Sequential Compression Device (SCD) *Heparin 5000 units SQ BID 3-4 Higher Order ONE of the following medications: *Heparin 5000 units SQ TID *Enoxaparin/Lovenox 40 mg SQ daily (WT < 150 kg, CrCl > 30 mL/min) *Enoxaparin/Lovenox 30 mg SQ daily (WT < 150 kg, CrCl > 10-29 mL/min) *Enoxaparin/Lovenox 30 mg SQ BID (WT < 150 kg, CrCl > 30 mL/min) AND/OR *Sequential Compression Device (SCD) 5 or more Highest Order ONE of the following medications: *Heparin 5000 units SQ TID (Preferred with Epidurals) *Enoxaparin/Lovenox 40 mg SQ daily (WT < 150 kg, CrCl > 30 mL/min) *Enoxaparin/Lovenox 30 mg SQ daily (WT < 150 kg, CrCl > 10-29 mL/min) *Enoxaparin/Lovenox 30 mg SQ BID (WT < 150 kg, CrCl > 30 mL/min) AND *Sequential Compression Device (SCD) Assessment and Plan Assessment and Plan This is an 67-year-old female history of glioblastoma and CVA with right-sided deficit who presented with multiple falls Multiple falls -Most likely due to history of glioblastoma and CVA. Per oncologist note patient has been progressively deteriorating. She is seeing oncologist and neurologist, Dr. Phillips and Dr. Humphreys. -I would prefer patient to go to rehab facility but is adamant to take care of patient at home. Will consult PT and OT to give recommendations on what is needed for patient in order for her to take care of her at home. She will also need home health. Right metatarsal fracture -Continue a surgical boot. -Follow with the orthopedic surgeon. GERD/Osteoporosis/hyperlipidemia /Seizures/Glioblastoma multiforme (left frontal temporal parietal hemorrhage with evacuation and resection of glioblastoma multiforme) -Continue with home medication. DVT prophylaxis -SCDs. Discussed Condition With Patient , nurse and and case management. Neha Guevara MD Oct 07, 2017 10:07
[2017-10-07] MEDS ORDERED: ACETAMINOPHEN/HYDROcodone 325 MG/5 MG TAB PO ONE (11:00)
[2017-10-07] MEDS ORDERED: ACETAMINOPHEN/HYDROcodone 325 MG/5 MG TAB PO PRN (11:00)
[2017-10-07] MEDS: SODIUM CHLOR 0.9% 1000 ML INJ 1,000 ML IV SCH ×2 (11:09→21:18)
[2017-10-07 11:50] VITALS: BP 137/92; PULSE 79; RESP 20; TEMP 97.8; O2SAT 98
[2017-10-07] MEDS: GABAPENTIN 100 MG CAP PO SCH ×2 (14:16→17:41)
[2017-10-07 15:00] VITALS: BP 135/66; PULSE 81; RESP 20; TEMP 97; O2SAT 94
[2017-10-07 20:13] VITALS: BP 133/75; PULSE 84; RESP 16; TEMP 98.4; O2SAT 96
[2017-10-07] MEDS ORDERED: ATORVASTATIN 20 MG TAB PO SCH (21:00)
[2017-10-07] MEDS ORDERED: DONEPEZIL HCL 5 MG TAB PO SCH (21:00)
[2017-10-07] MEDS: VALPROIC ACID 250 MG CAP PO SCH (21:29)
[2017-10-08 00:02] VITALS: BP 127/78; PULSE 80; RESP 18; TEMP 98; O2SAT 97
[2017-10-08] MEDS: SODIUM CHLOR 0.9% 1000 ML INJ 1,000 ML IV SCH (06:26)
[2017-10-08] MEDS: GABAPENTIN 100 MG CAP PO SCH ×2 (08:09→13:06)
[2017-10-08] MEDS: VALPROIC ACID 250 MG CAP PO SCH (08:09)
[2017-10-08] MEDS: SODIUM CHLORIDE 0.9% FLUSH 10 ML FLUSH IV FLUSH SCH (08:09)
[2017-10-08 08:22] VITALS: BP 140/91; PULSE 79; RESP 16; TEMP 98.7; O2SAT 96
[2017-10-08] MEDS ORDERED: CYANOCOBALAMIN 1,000 MCG TAB PO SCH (09:00)
[2017-10-08] MEDS ORDERED: PANTOPRAZOLE SOD 20 MG DELAYED RELEASE TAB PO SCH (09:00)
[2017-10-08] MEDS ORDERED: CHOLECALCIFEROL (VIT D3) 1000 UNIT TAB PO SCH (09:00)
[2017-10-08] MEDS ORDERED: MULTIVITAMIN TAB PO SCH (09:00)
[2017-10-08 12:00] VITALS: BP 140/73; PULSE 83; RESP 18; TEMP 98.1; O2SAT 94
--- NOTE | 2017-10-08 12:01 | HHI.FF ---
Face to Face Verification Diagnosis: (1) Frequent falls (2) Seizure disorder Physical Therapy Order: Evaluate and Treat, Improve ambulation Occupational Therapy Order: Evaluate and Treat, Improve ADL, Gross motor coordination Speech Therapy Order: To Improve: Speech and communication skills, Cognitive skills Home Health Nursing Order: Medical education Signs/symptoms of disease process Home Health Aide Order: To Assist In: Bathing and personal care, automobile travel club counselor and meal prep Distillation Operator Helper Order: To Evaluate: Living conditions/environment Order: To Provide: Long range planning I have seen patient Kelsy Betancur on 10/08/17. My clinical findings support the need for the requested home health care services because: Ltd mobility - disease progression Deconditioned w/ increased weakness Med compliance is questionable Limited ability to care for self I certify that my clinical findings support that this patient is homebound because: Impaired cognitive ability/safety Unsteady gait/balance Sandy De Dios MD Oct 08, 2017 12:01
--- NOTE | 2017-10-08 12:02 | HHI.DCPOC ---
Discharge Care Plan Diagnosis: (1) Seizure disorder (2) Frequent falls Goals to Promote Your Health * To prevent worsening of your condition and complications * To maintain your health at the optimal level Directions to Meet Your Goals Take your medications as prescribed Follow your dietary instruction Follow activity as directed Keep your appointments as scheduled Take your immunizations and boosters as scheduled If your symptoms worsen call your PCP, if no PCP go to Urgent Care Center or Emergency Room Smoking is Dangerous to Your Health. Avoid second hand smoke Call the 24-hour hour crisis hotline for domestic abuse at Sandy De Dios MD Oct 08, 2017 12:02
--- NOTE | 2017-10-08 12:05 | HHI.DS ---
Discharge Summary Admission Date Oct 06, 2017 at 23:00 Discharge Date: Oct 08, 2017 Admitting Diagnosis Frequent falls, difficulty ambulating (1) Seizure disorder ICD Code: G40.909 - Epilepsy, unspecified, not intractable, without status epilepticus Status: Acute (2) Brain tumor ICD Code: D49.6 - Neoplasm of unspecified behavior of brain Status: Acute (3) Frequent falls ICD Code: R29.6 - Repeated falls Status: Acute Procedures None Brief History - From Admission This is a 67-year-old female past medical history of glioblastoma and CVA who presented with multiple falls. Patient is a very poor historian and has expressive aphasia which is her baseline so unable to get an accurate history. Spoke to her who is at the bedside during the interview. Patient's brought her into the hospital due to multiple falls. He stated that he has been having a very hard time taking care of her and does not want to cause any further injuries. Patient seen recently due to a right foot fracture from a fall. He stated that Dr. Humphreys is seeing her. There has been no change in her baseline since she last saw her neurologist. Patient does have right-sided weakness due to her CVA. She also has tremors that is being managed by her neurologist in which she was started on Neurontin 1 month ago. At baseline patient is not able to ambulate. is having a hard time transferring patient due to his on back injuries. He stated that he wants to take her home but needs home health. He also stated that he needs the necessary tools to take care of her at home. stated that he is in the midst of moving to improve his 's life. Unable to obtain review of systems since patient is nonverbal. She does answer simple questions by nodding her head yes or no. CBC/BMP: 10/07/17 0611 10/07/17 0611 Significant Findings Laboratory Tests Test 10/06/17 20:25 10/06/17 21:28 10/07/17 06:11 Red Blood Count 3.79 MIL/MM3 (4.00-5.30) 3.64 MIL/MM3 (4.00-5.30) Hematocrit 33.6 % (35.0-46.0) 32.3 % (35.0-46.0) Monocytes (%) (Auto) 8.5 % (0.0-8.0) 10.4 % (0.0-8.0) Activated Partial Thromboplast Time 23.2 SEC (24.3-30.1) Calcium Level 8.1 MG/DL (8.5-10.1) 8.1 MG/DL (8.5-10.1) Total Bilirubin 1.3 MG/DL (0.2-1.0) Estimat Glomerular Filtration Rate 73 ML/MIN (>89) 83 ML/MIN (>89) Total Creatine Kinase 208 U/L (26-192) Hemoglobin 11.1 GM/DL (11.6-15.3) Eosinophils (%) (Auto) 4.1 % (0.0-4.0) Imaging Last Impressions Tibia/Fibula X-Ray 10/06/171836 Signed Impressions: Service Date/Time: Friday, October 06, 2017 20:31 - CONCLUSION: No acute disease. Mario Bhakta MD Foot X-Ray 10/06/171836 Signed Impressions: Service Date/Time: Friday, October 06, 2017 20:31 - CONCLUSION: Metatarsal fractures are again seen. Mario Bhakta MD Wrist X-Ray 10/06/17 0000 Signed Impressions: Service Date/Time: Friday, October 06, 2017 20:31 - CONCLUSION: No acute disease. Mario Bhakta MD Head CT 10/06/17 0000 Signed Impressions: Service Date/Time: Friday, October 06, 2017 19:31 - CONCLUSION: No acute disease. Mario Bhakta MD PE at Discharge GENERAL: This is a well-nourished, well-developed patient, calm CARDIOVASCULAR: Regular rate and rhythm without murmurs, gallops, or rubs. RESPIRATORY: Clear to auscultation. Breath sounds equal bilaterally. No wheezes , rales, or rhonchi. GASTROINTESTINAL: Abdomen soft, non-tender, nondistended. Normal active bowel sounds MUSCULOSKELETAL: Right boot in place, extremities without clubbing, cyanosis, or edema. NEURO: Alert & Oriented to herself at baseline Pt update on day of discharge Patient doing well in room. No new complaints. Discharge plan discussed with ancillary team as well as patient's spouse and the patient. Hospital Course This patient is a 67-year-old female was admitted with frequent falls and difficulty ambulating. She has a history of glioblastoma and CVA. Patient has a right metatarsal fracture recently and has been following up with podiatry. She has been weightbearing as tolerated. She has not had any new complaints. She is basically nonverbal but her caregiver is her spouse who cares greatly for her and assists greatly with her activities of daily living and recently had some trouble because of the instability related to the foot fracture. Recommendations were for home with home health and assistance was provided to arrange this. Pt Condition on Discharge: Good Discharge Disposition: Disch w/ Home Health Serv Discharge Time: <= 30 minutes Discharge Instructions DIET: Follow Instructions for: Heart Healthy Diet Activities you can perform: Regular-No Restrictions Follow up Referrals: PCP Follow-up - 1 Week Continued Medications: Alendronate (Alendronate) 70 Mg Tab 70 MG PO Q7D for Osteporosis Treatment, #4 TAB 0 Refills Atorvastatin (Atorvastatin) 20 Mg Tab 20 MG PO HS for Cholesterol Management, #30 TAB 0 Refills Cholecalciferol (Vitamin D) 2,000 Unit Tab 1 TAB PO DAILY Cyanocobalamin (Vitamin B-12) 1,000 Mcg Tab 1000 MCG PO DAILY for Nutritional Supplement, #1 BOTTLE 0 Refills Donepezil (Donepezil) 5 Mg Tab 10 MG PO HS for Dementia, #30 TAB 0 Refills Gabapentin (Gabapentin) 100 Mg Cap 100 MG PO TID, #90 CAP 0 Refills Multiple Vitamin (Multiple Vitamin) 1 Tab 2 TAB PO DAILY for Nutritional Supplement, TAB 0 Refills Omeprazole (Omeprazole) 20 Mg Tab 20 MG PO DAILY, #30 TAB 0 Refills Valproic Acid (Depakene) 250 Mg Cap 250 MG PO Q12HR, #60 Sandy Dubois MD Oct 08, 2017 12:05
[2017-10-08 16:00] VITALS: BP 121/74; PULSE 67; RESP 16; TEMP 96.6; O2SAT 97
--- NOTE | 2017-10-09 12:52 | HHI.FF ---
Face to Face Verification Diagnosis: (1) Seizure disorder (2) Metatarsal bone fracture (3) Glioblastoma multiforme of brain Physical Therapy Order: Evaluate and Treat, Improve ambulation Occupational Therapy Order: Evaluate and Treat, Gross motor coordination Home Health Nursing Order: Medical education Oxygen administration education Retirement Plan Counselor Order: To Evaluate: Living conditions/environment, Support services I have seen patient Kelsy Betancur on 10/09/17. My clinical findings support the need for the requested home health care services because: Ltd mobility - disease progression Patient has SOB I certify that my clinical findings support that this patient is homebound because: Hx COPD- exertion dyspnea/weakness Unsteady gait/balance Sandy De Dios MD Oct 09, 2017 12:52
== END 2017-10-08 18:30 | disposition home or self-care (01) ==
LOC: PHEFT 18:33 → PHEDA 23:00 → PH3B 10-07 00:19
PROVIDERS: ADMIT Hospitalist; ATTEND Hospitalist
DX: G40.909 Epilepsy, unspecified, not intractable, without status epilepticus (principal); C71.9 Malignant neoplasm of brain, unspecified; R29.6 Repeated falls; I61.1 Nontraumatic intracerebral hemorrhage in hemisphere, cortical; E78.5 Hyperlipidemia, unspecified; G25.0 Essential tremor; I10 Essential (primary) hypertension; K21.9 Gastro-esophageal reflux disease without esophagitis; R94.31 Abnormal electrocardiogram [ECG] [EKG]; M81.0 Age-related osteoporosis without current pathological fracture; S92.301A Fracture of unspecified metatarsal bone(s), right foot, initial encounter for closed fracture; M25.532 Pain in left wrist; M25.531 Pain in right wrist; Z86.73 Personal history of transient ischemic attack (TIA), and cerebral infarction without residual deficits; Z92.3 Personal history of irradiation; W18.30XA Fall on same level, unspecified, initial encounter
CPT/HCPCS: 51702; 70450; 73100; 73590; 73620; 80048; 80053; 81001; 82550; 82552; 83735; 84443; 85025; 85610; 85730; 93005; 96360; 96361; G0378; G8987-GO; G8987-GP; G8988-GO; G8988-GP; J7030

== ENCOUNTER 2018-01-24 09:18 | Observation (INO) | payer OTHER ==
[~2018-01-24] VITALS: Ht 167.6 cm; Wt 82.6 kg
[~2018-01-24 09:18] MED LIST changes: -HYDR-3516 PO; -TEMA7.5C9 PO; -VITA100020 PO
[2018-01-24 09:26] VITALS: BP 119/57; PULSE 69; RESP 18; TEMP 98.2; O2SAT 92
[2018-01-24] MEDS ORDERED: MULT-231 PO (09:40)
[2018-01-24] MEDS ORDERED: LACO50 PO (09:40)
[2018-01-24] MEDS ORDERED: BACT800T5 PO (09:40)
--- NOTE | 2018-01-24 10:58 | PD ---
HPI Chief Complaint: Fall Time Seen by Provider: 09:39 Travel History International Travel<30 days: No Contact w/Intl Traveler<30days: No Traveled to known affect area: No History of Present Illness HPI Patient is speech impaired so history is limited. This is a 67-year-old female who presents to the emergency department with a history of glioblastoma here today because she has been increasingly weak and having more difficulty ambulating. This morning she had a fall where she landed on her right knee. Her was trying to transfer her out of bed when she fell. She is reporting some pain in her right knee, constant, moderate severity, worse with movement, improved with rest. He says that the right side of her body appears weaker. She also recently switched from Depakote to Vimpat and is scheduled for an EEG. He reports that for several weeks following her last hospital visit she had home health care and physical therapy but since they have had no support at home is having trouble taking care of her. PFSH Past Medical History Arthritis: Yes Asthma: No Autoimmune Disease: No Blood Disorders: No Heart Rhythm Problems: No Cancer: Yes (GLIOBLASTOMA MULTIFORME) Cardiovascular Problems: Yes High Cholesterol: Yes Chemotherapy: Yes Chest Pain: No Congestive Heart Failure: No COPD: No Cerebrovascular Accident: Yes Diabetes: No Diminished Hearing: No Endocrine: No Gastrointestinal Disorders: Yes GERD: Yes Genitourinary: No Headaches: No Hiatal Hernia: No Hypertension: Yes Immune Disorder: No Implanted Vascular Access Dvce: No Kidney Stones: No Musculoskeletal: Yes (r leg fracture) Neurologic: Yes Psychiatric: No Reproductive: No Respiratory: Yes Immunizations Current: Yes Migraines: No Radiation Therapy: Yes (2004) Renal Failure: No Seizures: Yes Sleep Apnea: No Thyroid Disease: No Ulcer: No ?: Not Menopausal: Yes : 1 Para: 1 Ovarian Cysts: Yes Past Surgical History Abdominal Surgery: No AICD: No Arteriovenous Shunt: No Cardiac Surgery: No Section: Yes Ear Surgery: No Endocrine Surgery: No Eye Surgery: No Genitourinary Surgery: No Gynecologic Surgery: No Insulin Pump: No Joint Replacement: No Neurologic Surgery: Yes (BRAIN TUMOR REMOVED X2 10 YEARS AGO) Oral Surgery: No Pacemaker: No Thoracic Surgery: No Other Surgery: Yes Social History Alcohol Use: No Tobacco Use: No Substance Use: No Allergies-Medications (Allergen,Severity, Reaction): Coded Allergies: latex (Unverified Allergy, Severe, Rash, 01/24/18) penicillin G (Unverified Allergy, Severe, 01/24/18) phenytoin (Unverified Allergy, Severe, Rash, 01/24/18) Reported Meds & Prescriptions Reported Meds & Active Scripts Active Reported Women Multivit W-Biotin Gummy (Multivit-Min/Folic Acid/Biotin) 200 Mcg-300 Mcg Tab.chew 1 Tab PO DAILY Vimpat (Lacosamide) 50 Mg Tab 50 Mg PO BID Bactrim DS (Sulfamethoxazole-Trimethoprim) 800-160 Mg Tab 1 Tab PO BID Donepezil 5 Mg Tab 10 Mg PO HS Vitamin D (Cholecalciferol) 2,000 Unit Tab 1 Tab PO DAILY Vitamin B-12 (Cyanocobalamin) 1,000 Mcg Tab 1,000 Mcg PO DAILY Omeprazole 20 Mg Tab 20 Mg PO DAILY Gabapentin 100 Mg Cap 100 Mg PO TID Alendronate (Alendronate Sodium) 70 Mg Tab 70 Mg PO Q7D Atorvastatin (Atorvastatin Calcium) 20 Mg Tab 20 Mg PO HS Review of Systems ROS Limitations: Speech Impaired Physical Exam Narrative GENERAL:Well appearing, no acute distress SKIN: Focused skin assessment warm and dry. HEAD: Atraumatic. Normocephalic. EYES: Pupils equal and round. No injection or drainage. ENT: Moist mucous membranes NECK: Trachea midline. CARDIOVASCULAR: Regular rate and rhythm. No murmur appreciated. RESPIRATORY: Clear to auscultation. Breath sounds equal bilaterally. GASTROINTESTINAL: Abdomen soft, non-tender, nondistended. MUSCULOSKELETAL: Tender to palpation over the right patella and proximal tibia. NEUROLOGICAL: Awake and alert. Answers simple questions, 3 out of 5 strength in the right lower extremity, 4 out of 5 strength in the left lower extremity, 4 + out of 5 strength in bilateral upper extremities. Moderate dysarthria and aphasia. PSYCHIATRIC: Appropriate mood and affect; insight and judgment normal. Data Data Last Documented VS Vital Signs Date Time Temp Pulse Resp B/P (MAP) Pulse Ox O2 Delivery O2 Flow Rate FiO2 01/24/18 09:48 69 18 01/24/18 09:26 98.2 119/57 (77) [address] Brain W/O Iv Contrast(Rout) (01/24/18 ) Complete Blood Count With Diff (01/24/18 09:59) Comprehensive Metabolic Panel (01/24/18 09:59) ^ Insert Iv (01/24/18 09:59) Cath For Specimen (01/24/18 09:59) Urinalysis - C+S If Indicated (01/24/18 09:59) Knee, Complete (4vws) (01/24/18 ) Tibia/Fibula (Ap/Lat) (01/24/18 ) Splint Or Brace Apply/Monitor (01/24/18 11:43) Admit Order (Ed Use Only) (01/24/18 12:07) Labs Laboratory Tests Test 01/24/18 10:57 01/24/18 11:05 White Blood Count 8.8 TH/MM3 Red Blood Count 4.07 MIL/MM3 Hemoglobin 12.1 GM/DL Hematocrit 36.7 % Mean Corpuscular Volume 90.0 FL Mean Corpuscular Hemoglobin 29.7 PG Mean Corpuscular Hemoglobin Concent 33.0 % Red Cell Distribution Width 13.5 % Platelet Count 301 TH/MM3 Mean Platelet Volume 8.8 FL Neutrophils (%) (Auto) 75.3 % Lymphocytes (%) (Auto) 14.4 % Monocytes (%) (Auto) 5.5 % Eosinophils (%) (Auto) 0.4 % Basophils (%) (Auto) 4.4 % Neutrophils # (Auto) 6.6 TH/MM3 Lymphocytes # (Auto) 1.3 TH/MM3 Monocytes # (Auto) 0.5 TH/MM3 Eosinophils # (Auto) 0.0 TH/MM3 Basophils # (Auto) 0.4 TH/MM3 CBC Comment DIFF FINAL Differential Comment Blood Urea Nitrogen 16 MG/DL Creatinine 1.00 MG/DL Random Glucose 88 MG/DL Total Protein 7.0 GM/DL Albumin 3.3 GM/DL Calcium Level 8.8 MG/DL Alkaline Phosphatase 111 U/L Aspartate Amino Transf (AST/SGOT) 30 U/L Alanine Aminotransferase (ALT/SGPT) 24 U/L Total Bilirubin 1.0 MG/DL Sodium Level 139 MEQ/L Potassium Level 4.3 MEQ/L Chloride Level 106 MEQ/L Carbon Dioxide Level 24.4 MEQ/L Anion Gap 9 MEQ/L Estimat Glomerular Filtration Rate 55 ML/MIN Urine Color YELLOW Urine Turbidity CLEAR Urine pH 6.5 Urine Specific [place] 1.025 Urine Protein NEG mg/dL Urine Glucose (UA) NEG mg/dL Urine Ketones NEG mg/dL Urine Occult Blood NEG Urine Nitrite NEG Urine Bilirubin NEG Urine Urobilinogen 1.0 MG/DL Urine Leukocyte Esterase NEG Urine RBC 0-3 /hpf Urine WBC 0-2 /hpf Urine Squamous Epithelial Cells 0-5 /hpf Urine Bacteria NONE /hpf Microscopic Urinalysis Comment CULT NOT INDICATED MDM Medical Decision Making Medical Screen Exam Complete: Yes Emergency Medical Condition: Yes Interpretation(s) Afebrile, normotensive No leukocytosis Electrolytes are reassuring Urinalysis demonstrates no infection Last 24 hours Impressions Tibia/Fibula X-Ray 01/24/18 0000 Signed Impressions: CONCLUSION: Fracturing of the right proximal fibular shaft. Knee X-Ray 01/24/18 0000 Signed Impressions: CONCLUSION: Fracturing of the proximal fibular shaft. Head CT 01/24/18 0000 Signed Impressions: CONCLUSION: 1. No acute abnormality seen. 2. There is encephalomalacia and suspected postoperative change in the left ce rebral hemisphere. The patient is status post left craniotomy. Differential Diagnosis Tibial fracture, fibular fracture, intracranial hemorrhage, electrolyte abnormality, tumor recurrence Narrative Course This is a 67-year-old female who presents to the emergency having had a mechanical fall earlier today. She has been increasingly weak and debilitated over the past several weeks. She was placed on a monitor and an IV was established. Labs are reassuring. CT demonstrates chronic changes. I think patient requires observation for MRI to evaluate for tumor recurrence. She was found to have a proximal fibular fracture. Given her already limited mobility she will likely require disposition to rehab if this is amenable to the family. Physician Communication Physician Communication Discussed with Dr. Blancas Diagnosis Primary Impression: Weakness Additional Impression: Fracture of proximal end of fibula Qualified Codes: S82.831A - Other fracture of upper and lower end of right fibula, initial encounter for closed fracture Admitting Information Admitting Physician Requests: Observation Bridget Etienne MD Jan 24, 2018 10:58
[2018-01-24 11:04] LABS: AUTOMATED NEUTROPHIL # 6.6 TH/MM3 (1.8-7.7); BASOPHIL # 0.4 TH/MM3 (0-0.2); BASOPHIL % 4.4 % (0.0-2.0); EOSINOPHIL % 0.4 % (0.0-4.0); HEMATOCRIT 36.7 % (35.0-46.0); HEMOGLOBIN 12.1 GM/DL (11.6-15.3); LYMPH % 14.4 % (9.0-44.0); LYMPHOCYTE # 1.3 TH/MM3 (1.0-4.8); MEAN CORPUSCULAR HEMOGLOBIN 29.7 PG (27.0-34.0); MEAN PLATELET VOLUME 8.8 FL (7.0-11.0); MONO % 5.5 % (0.0-8.0); MONOCYTE # 0.5 TH/MM3 (0-0.9); NEUT % 75.3 % (16.0-70.0); PLATELET COUNT 301 TH/MM3 (150-450); RED BLOOD COUNT 4.07 MIL/MM3 (4.00-5.30); RED CELL DISTRIBUTION WIDTH 13.5 % (11.6-17.2); WHITE BLOOD COUNT 8.8 TH/MM3 (4.0-11.0)
[2018-01-24 11:14] LABS: CHLORIDE 106 MEQ/L (98-107); SODIUM (NA) 139 MEQ/L (136-145)
--- NOTE | 2018-01-24 11:15 | RADRPT ---
EXAM DATE: 01/24/2018 10:42 AM EDT AGE/SEX: 67 years / Female INDICATIONS: Right knee pain post fall. CLINICAL DATA: This is the patient's initial encounter. Patient reports that signs and symptoms have been present for 1 day and indicates a pain score of Nonresponsive. MEDICAL/SURGICAL HISTORY: Arthritis. Osteoarthritis. Hypercholesterolemia. CVA. Hypertension . GERD. Glioblastoma. Chemo & radiation therapy. section. Brain tumor removed. COMPARISON: No prior exams available for comparison. FINDINGS: There is fracturing of the proximal fibula. Significant displacement is not seen. No other fracture i s identified. The knee joint is normally aligned. CONCLUSION: Fracturing of the proximal fibular shaft. Electronically signed by: Lev Harvey MD 01/24/2018 11:13 AM EDT
[2018-01-24 11:18] LABS: ALBUMIN 3.3 GM/DL (3.4-5.0); BICARBONATE 24.4 MEQ/L (21.0-32.0); CALCIUM 8.8 MG/DL (8.5-10.1); GLUCOSE,RANDOM 88 MG/DL (74-106)
--- NOTE | 2018-01-24 11:18 | RADRPT ---
EXAM DATE: 01/24/2018 10:45 AM EDT AGE/SEX: 67 years / Female INDICATIONS: Right proximal tib/fib pain post fall. CLINICAL DATA: This is the patient's initial encounter. Patient reports that signs and symptoms have been present for 1 day and indicates a pain score of 7/10. MEDICAL/SURGICAL HISTORY: Hypercholesterolemia. Arthritis. Osteoarthritis. CVA. Hypertension . GERD. Glioblastoma. Chemo & radiation therapy. section. Brain tumor removed COMPARISON: [facility], TIBIA/FIBULA RIGHT (AP/LAT), 10/06/2017. . FINDINGS: There is a fracture at the proximal right fibular shaft. This is not significantly displaced. No othe r fractures seen. The knee and ankle joints are grossly normally aligned. CONCLUSION: Fracturing of the right proximal fibular shaft. Electronically signed by: Lev Harvey MD 01/24/2018 11:16 AM EDT
[2018-01-24 11:19] LABS: BLOOD UREA NITROGEN 16 MG/DL (7-18)
[2018-01-24 11:21] LABS: ALT (GPT) 24 U/L (10-53)
--- NOTE | 2018-01-24 11:21 | RADRPT ---
EXAM DATE: 01/24/2018 10:42 AM EDT AGE/SEX: 67 years / Female INDICATIONS: Trauma. Fall. Right side weakness. CLINICAL DATA: This is the patient's initial encounter. Patient reports that signs and symptoms have been present for 1 day and indicates a pain score of 5/10. MEDICAL/SURGICAL HISTORY: Cerebrovascular disease. Gastroesophageal reflux disease. Hypertension. Seizures. Glioblastoma Multiform. section. Brain tumor removed. RADIATION DOSE: 49.53 CTDI (mGy) COMPARISON: [facility], CT BRAIN W/O CONTRAST, 10/06/2017. . TECHNIQUE: CT of the head without contrast. Using automated exposure control and adjustment of the mA and/or kV according to patient size, radiation dose was kept as low as reasonably achievable to ob tain optimal diagnostic quality images. DICOM format image data is available electronically for revi ew and comparison. FINDINGS: Cerebrum: There is low density and encephalomalacia seen in the left frontal, temporal and parietal l obes. The patient is status post left craniotomy. There is expansion of the left lateral ventricle. T here is encephalomalacia from prior infarction of the anterior left thalamus. The ventricles are norm al for age. No evidence of midline shift, mass lesion, hemorrhage or acute infarction. No extraaxia l fluid collections are seen. 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 Posterior Fossa: The cerebellum and brainstem are intact. The 4th ventricle is midline. The cerebe llopontine angle is unremarkable. Extracranial: The visualized portion of the orbits is intact. Skull: The calvaria is intact. No evidence of skull fracture. CONCLUSION: 1. No acute abnormality seen. 2. There is encephalomalacia and suspected postoperative change in the left cerebral hemisphere. The patient is status post left craniotomy. Electronically signed by: Lev Harvey MD 01/24/2018 11:19 AM EDT
[2018-01-24 11:22] LABS: AST (GOT) 30 U/L (15-37); GLOMERULAR FILTRATION RATE 55 ML/MIN (>89)
[2018-01-24 11:24] LABS: ALKALINE PHOSPHATASE 111 U/L (45-117)
[2018-01-24 11:30] LABS: BILIRUBIN, URINE NEG (NEG); BLOOD, URINE NEG (NEG); GLUCOSE,URINE NEG (NEG); KETONE, URINE NEG (NEG); NITRITE,URINE NEG (NEG); PH, URINE 6.5 (5.0-8.5); URINE COLOR YELLOW (YELLW/STRAW); URINE LEUKOCYTE ESTERASE NEG (NEG)
[2018-01-24 11:38] LABS: RBC, URINE 0-3 /hpf (0-3); SQUAMOUS EPITHELIAL CELL URINE 0-5 /hpf (0-5); WBC, URINE 0-2 /hpf (0-5)
[2018-01-24] MEDS ORDERED: LACTULOSE SYRUP 20 GM/30 ML CUP PO PRN (12:15)
[2018-01-24] MEDS ORDERED: ACETAMINOPHEN 325 MG TAB PO PRN (12:15)
[2018-01-24] MEDS ORDERED: MAGNESIUM HYDROXIDE SUSP 30 ML CUP PO PRN (12:15)
[2018-01-24] MEDS ORDERED: NALOXONE HCL 0.4 MG/ML AMP IV PUSH PRN (12:15)
[2018-01-24] MEDS ORDERED: BISACODYL 10 MG SUPP RECTAL PRN (12:15)
[2018-01-24] MEDS ORDERED: SODIUM CHLORIDE 0.9% FLUSH 10 ML FLUSH IV FLUSH PRN (12:15)
[2018-01-24] MEDS ORDERED: SENNOSIDES 8.6 MG TAB PO PRN (12:15)
[2018-01-24] MEDS ORDERED: MORPHINE SULFATE 4 MG/ML INJ IV PUSH ONE (12:30)
--- NOTE | 2018-01-24 14:37 | HHI.HP ---
[facility] Nathen Newton MD Admission Diagnosis weakness, fibular fracture Diagnoses: Chief Complaint: Fall, right fibular fracture. Travel History International Travel<30 Days: No Contact w/Intl Traveler <30 Da: No Traveled to Known Affected Are: No History of Present Illness Ms. Betancur is a 67-year-old female with a history of glioblastoma multiforme who presents to the emergency room on 01/24/2018 after she fell when she landed on her right knee on the morning of this admission. She has been increasingly feeling weak and experiencing difficulty ambulating. She feels that her right side is weaker. She has been on antiseizure medication (Vimpat). She is not able to provide much history. She does not remember when or who did surgery for her GBM cancer. She reports her pain is well controlled currently. Review of Systems Except as stated in HPI: all other systems reviewed are Neg Past Family Social History Past Medical History Glioblastoma multiforme Arthritis, hyperlipidemia, seizure, GERD Past Surgical History Women Multivit W-Biotin Gummy (Multivit-Min/Folic Acid/Biotin) 200 Mcg-300 Mcg Tab.chew 1 Tab PO DAILY Vimpat (Lacosamide) 50 Mg Tab 50 Mg PO BID Bactrim DS (Sulfamethoxazole-Trimethoprim) 800-160 Mg Tab 1 Tab PO BID Donepezil 5 Mg Tab 10 Mg PO HS Vitamin D (Cholecalciferol) 2,000 Unit Tab 1 Tab PO DAILY Vitamin B-12 (Cyanocobalamin) 1,000 Mcg Tab 1,000 Mcg PO DAILY Omeprazole 20 Mg Tab 20 Mg PO DAILY Gabapentin 100 Mg Cap 100 Mg PO TID Alendronate (Alendronate Sodium) 70 Mg Tab 70 Mg PO Q7D Atorvastatin (Atorvastatin Calcium) 20 Mg Tab 20 Mg PO HS Allergies: Coded Allergies: latex (Unverified Allergy, Severe, Rash, 01/24/18) penicillin G (Unverified Allergy, Severe, 01/24/18) phenytoin (Unverified Allergy, Severe, Rash, 01/24/18) Social History Denies using tobacco, alcohol, illicit drugs. Physical Exam Vital Signs Vital Signs Date Time Temp Pulse Resp B/P (MAP) Pulse Ox O2 Delivery O2 Flow Rate FiO2 01/24/18 09:48 69 18 01/24/18 09:26 98.2 69 18 119/57 (77) 92 Physical Exam GENERAL: This is a well-nourished, well-developed patient, in no apparent distress. SKIN: No rashes, ecchymoses or lesions. Warm and dry. HEAD: Atraumatic. Normocephalic. No temporal or scalp tenderness. EYES: Pupils equal round and reactive. No injection or drainage. ENT: Nose without bleeding, purulent drainage or septal hematoma. Airway patent. NECK: Trachea midline. No lymphadenopathy. Supple, nontender, no meningeal signs. CARDIOVASCULAR: Regular rate and rhythm without murmurs, gallops, or rubs. No JVD. RESPIRATORY: Clear to auscultation. Breath sounds equal bilaterally. No wheezes , rales, or rhonchi. GASTROINTESTINAL: Abdomen soft, non-tender, nondistended. No guarding. MUSCULOSKELETAL: Extremities without clubbing, cyanosis, or edema. Right leg cast in place. NEUROLOGICAL: Awake, somewhat slow speech. Laboratory Laboratory Tests Test 01/24/18 10:57 01/24/18 11:05 White Blood Count 8.8 Red Blood Count 4.07 Hemoglobin 12.1 Hematocrit 36.7 Mean Corpuscular Volume 90.0 Mean Corpuscular Hemoglobin 29.7 Mean Corpuscular Hemoglobin Concent 33.0 Red Cell Distribution Width 13.5 Platelet Count 301 Mean Platelet Volume 8.8 Neutrophils (%) (Auto) 75.3 Lymphocytes (%) (Auto) 14.4 Monocytes (%) (Auto) 5.5 Eosinophils (%) (Auto) 0.4 Basophils (%) (Auto) 4.4 Neutrophils # (Auto) 6.6 Lymphocytes # (Auto) 1.3 Monocytes # (Auto) 0.5 Eosinophils # (Auto) 0.0 Basophils # (Auto) 0.4 CBC Comment DIFF FINAL Differential Comment Blood Urea Nitrogen 16 Creatinine 1.00 Random Glucose 88 Total Protein 7.0 Albumin 3.3 Calcium Level 8.8 Alkaline Phosphatase 111 Aspartate Amino Transf (AST/SGOT) 30 Alanine Aminotransferase (ALT/SGPT) 24 Total Bilirubin 1.0 Sodium Level 139 Potassium Level 4.3 Chloride Level 106 Carbon Dioxide Level 24.4 Anion Gap 9 Estimat Glomerular Filtration Rate 55 Urine Color YELLOW Urine Turbidity CLEAR Urine pH 6.5 Urine Specific [place] 1.025 Urine Protein NEG Urine Glucose (UA) NEG Urine Ketones NEG Urine Occult Blood NEG Urine Nitrite NEG Urine Bilirubin NEG Urine Urobilinogen 1.0 Urine Leukocyte Esterase NEG Urine RBC 0-3 Urine WBC 0-2 Urine Squamous Epithelial Cells 0-5 Urine Bacteria NONE Microscopic Urinalysis Comment CULT NOT INDICATED Result Diagram: 01/24/18 1057 01/24/18 1057 Imaging Last Impressions Tibia/Fibula X-Ray 01/24/18 0000 Signed Impressions: CONCLUSION: Fracturing of the right proximal fibular shaft. Knee X-Ray 01/24/18 0000 Signed Impressions: CONCLUSION: Fracturing of the proximal fibular shaft. Head CT 01/24/18 0000 Signed Impressions: CONCLUSION: 1. No acute abnormality seen. 2. There is encephalomalacia and suspected postoperative change in the left ce rebral hemisphere. The patient is status post left craniotomy. Caprini VTE Risk Assessment Caprini VTE Risk Assessment: No/Low Risk (score <= 1) Caprini Risk Assessment Model Point Value = 1 Point Value = 2 Point Value = 3 Point Value = 5 Age 41-60 Minor surgery BMI > 25 kg/m2 Swollen legs Varicose veins or History of unexplained or recurrent spontaneous Oral contraceptives or hormone replacement Sepsis (< 1 month) Serious lung disease, including pneumonia (< 1 month) Abnormal pulmonary function Acute myocardial infarction Congestive heart failure (< 1 month) History of inflammatory bowel disease Medical patient at bed rest Age 61-74 Arthroscopic surgery Major open surgery (> 45 min) Laparoscopic surgery (> 45 min) Malignancy Confined to bed (> 72 hours) Immobilizing plaster cast Central venous access Age >= 75 History of VTE Family history of VTE Factor V Leiden Prothrombin [id number] Lupus anticoagulant Anticardiolipin antibodies Elevated serum homocysteine Heparin-induced thrombocytopenia Other congenital or acquired thrombophilia Stroke (< 1 month) Elective arthroplasty Hip, pelvis, or leg fracture Acute spinal cord injury (< 1 month) Prophylaxis Regimen Total Risk Factor Score Risk Level Prophylaxis Regimen 0-1 Low Early ambulation 2 Moderate Order ONE of the following: *Sequential Compression Device (SCD) *Heparin 5000 units SQ BID 3-4 Higher Order ONE of the following medications: *Heparin 5000 units SQ TID *Enoxaparin/Lovenox 40 mg SQ daily (WT < 150 kg, CrCl > 30 mL/min) *Enoxaparin/Lovenox 30 mg SQ daily (WT < 150 kg, CrCl > 10-29 mL/min) *Enoxaparin/Lovenox 30 mg SQ BID (WT < 150 kg, CrCl > 30 mL/min) AND/OR *Sequential Compression Device (SCD) 5 or more Highest Order ONE of the following medications: *Heparin 5000 units SQ TID (Preferred with Epidurals) *Enoxaparin/Lovenox 40 mg SQ daily (WT < 150 kg, CrCl > 30 mL/min) *Enoxaparin/Lovenox 30 mg SQ daily (WT < 150 kg, CrCl > 10-29 mL/min) *Enoxaparin/Lovenox 30 mg SQ BID (WT < 150 kg, CrCl > 30 mL/min) AND *Sequential Compression Device (SCD) Assessment and Plan Problem List: (1) Fracture of proximal end of fibula ICD Code: S82.839A - Other fracture of upper and lower end of unspecified fibula, initial encounter for closed fracture Status: Acute (2) Glioblastoma multiforme of brain ICD Code: C71.9 - Glioblastoma multiforme of brain Status: Chronic (3) Seizure ICD Code: R56.9 - Seizure Status: Acute Assessment and Plan Ms. Betancur is a 67-year-old female with a history of glioblastoma multiforme who presents to the emergency department after she fell on her right side sustaining a proximal fibula fracture on the right. Right-sided fibular fracture -Images reviewed. Likely nonsurgical. -We will obtain PT evaluation. Patient may likely need SNF placement. -Acetaminophen and Neptune for pain management. Glioblastoma multiforme Seizure disorder -Continue Vimpat. Dementia Hyperlipidemia - Continue Donepezil, Lipitor. Full code. Lovenox. Problem Qualifiers (1) Fracture of proximal end of fibula: Qualified Codes: S82.831A - Other fracture of upper and lower end of right fibula, initial encounter for closed fracture Flako Blancas DO Jan 24, 2018 14:37
[2018-01-24] MEDS ORDERED: ACETAMINOPHEN/HYDROcodone 325 MG/5 MG TAB PO PRN (15:00)
[2018-01-24] MEDS ORDERED: ENOXAPARIN SODIUM 40 MG/0.4 ML SYRINGE SQ SCH (16:00)
[2018-01-24] MEDS ORDERED: GADODIAMIDE PF 287 MG/ML 20 ML VIAL (for RAD MRI) IVCONTRAST ONE (16:32)
--- NOTE | 2018-01-24 17:43 | RADRPT ---
EXAM DATE: 01/24/2018 4:46 PM EDT AGE/SEX: 67 years / Female INDICATIONS: Mass. Right sided weakness and fall today. CLINICAL DATA: This is the patient's initial encounter. Patient reports that signs and symptoms have been present for 1 day and indicates a pain score of 0/10. MEDICAL/SURGICAL HISTORY: . Brain cancer. . Brain tumor removal. [place] [facility] [place]. [facility], CT BRAIN W/O CONTRAST, 01/24/2018. . TECHNIQUE: Multiplanar, multisequence examination of the brain was performed without and with 16 ml O mniscan (gadodiamide) contrast as a single exam dose. FINDINGS: Cerebrum: The patient is status post left craniotomy. There is encephalomalacia at the anterior left temporal lobe. There is some enhancement seen in this region but this enhancement is clearly less pr ominent on the current exam. This area measures approximately 1.7 x 1.7 x 1.5 cm. There is increased signal seen throughout the left cerebral white matter. There is fine loss with expansion of the left lateral ventricle. The right cerebral hemisphere appears normal. The ventricles are normal for age. No evidence of midline shift, mass lesion, hemorrhage or acute infarction. No extraaxial fluid colle ctions are seen. The pituitary gland and suprasellar cistern are normal in configuration. White Matter: No significant signal abnormalities are seen in the white matter. Posterior Fossa: The cerebellum and brainstem are intact. The 4th ventricle is midline. The cerebel lopontine angle is unremarkable. The cerebellar tonsils are normal in position. Diffusion Imaging: No focal areas of restricted diffusion are seen. No evidence of acute infarction . Extracranial: The visualized portions of the orbits and paranasal sinuses are unremarkable. CONCLUSION: 1. Post left craniotomy. There is some residual enhancement seen in the anterior left temporal lobe at the plantar aspect of the middle cranial fossa. The amount of enhancement is clearly decreased whe n compared to the prior exam. 2. Suspected posttreatment change with volume loss and clearly cysts seen throughout the left cerebr al hemisphere. 3. An acute abnormality or significant change is not seen. Electronically signed by: Lev Harvey MD 01/24/2018 5:41 PM EDT
[2018-01-24] MEDS: GABAPENTIN 100 MG CAP PO SCH (17:49)
[2018-01-24 18:15] VITALS: BP 137/170; PULSE 77; RESP 20; TEMP 97.9; O2SAT 96
[2018-01-24 20:00] VITALS: BP 131/66; PULSE 83; RESP 20; TEMP 97.7; O2SAT 93
[2018-01-24] MEDS ORDERED: ATORVASTATIN 20 MG TAB PO SCH (21:00)
[2018-01-24] MEDS ORDERED: DONEPEZIL HCL 5 MG TAB PO SCH (21:00)
[2018-01-24] MEDS: LACOSAMIDE 50 MG TAB PO SCH (21:53)
[2018-01-24] MEDS: SODIUM CHLORIDE 0.9% FLUSH 10 ML FLUSH IV FLUSH SCH (21:54)
[2018-01-25] VITALS: BP 133/64; PULSE 85; RESP 20; TEMP 96.4; O2SAT 95
[2018-01-25 08:00] VITALS: BP 131/63; PULSE 77; RESP 18; TEMP 96.7; O2SAT 96
[2018-01-25] MEDS: GABAPENTIN 100 MG CAP PO SCH ×2 (08:13→13:35)
[2018-01-25] MEDS: LACOSAMIDE 50 MG TAB PO SCH (08:13)
[2018-01-25] MEDS: SODIUM CHLORIDE 0.9% FLUSH 10 ML FLUSH IV FLUSH SCH (08:13)
--- NOTE | 2018-01-25 08:23 | HHI.PR ---
Subjective Remarks Follow up for right fibular fracture. Patient is currently doing well. Resting in bed. Pain is well controlled. No fever, chills. Objective Vitals Vital Signs Date Time Temp Pulse Resp B/P (MAP) Pulse Ox O2 Delivery O2 Flow Rate FiO2 01/25/18 00:00 96.4 85 20 133/64 (87) 95 01/24/18 20:00 97.7 83 20 131/66 (87) 93 01/24/18 18:15 97.9 77 20 137/170 (159) 96 01/24/18 09:48 69 18 01/24/18 09:26 98.2 69 18 119/57 (77) 92 I/O 01/24/18 01/24/18 01/24/18 01/25/18 01/25/18 01/25/18 07:00 15:00 23:00 07:00 15:00 23:00 Intake Total 200 ml 0 ml Balance 200 ml 0 ml Intake Oral 200 ml 0 ml # Voids 1 Result Diagram: 01/24/18 1057 01/24/18 1057 Imaging Last Impressions Tibia/Fibula X-Ray 01/24/18 0000 Signed Impressions: CONCLUSION: Fracturing of the right proximal fibular shaft. Knee X-Ray 01/24/18 0000 Signed Impressions: CONCLUSION: Fracturing of the proximal fibular shaft. Head CT 01/24/18 0000 Signed Impressions: CONCLUSION: 1. No acute abnormality seen. 2. There is encephalomalacia and suspected postoperative change in the left ce rebral hemisphere. The patient is status post left craniotomy. Brain MRI 01/24/18 0000 Signed Impressions: CONCLUSION: 1. Post left craniotomy. There is some residual enhancement seen in the anteri or left temporal lobe at the plantar aspect of the middle cranial fossa. The am ount of enhancement is clearly decreased when compared to the prior exam. 2. Suspected posttreatment change with volume loss and clearly cysts seen thro ughout the left cerebral hemisphere. 3. An acute abnormality or significant change is not seen. Objective Remarks GENERAL: Alert, NAD. SKIN: Warm and dry. HEAD: Normocephalic. EYES: No scleral icterus. No injection or drainage. NECK: Supple, trachea midline. No JVD or lymphadenopathy. CARDIOVASCULAR: Regular rate and rhythm without murmurs, gallops, or rubs. RESPIRATORY: Breath sounds equal bilaterally. No accessory muscle use. GASTROINTESTINAL: Abdomen soft, non-tender, nondistended. MUSCULOSKELETAL: No cyanosis, or edema. BACK: Nontender without obvious deformity. No CVA tenderness. Procedures None A/P Problem List: (1) Fracture of proximal end of fibula ICD Code: S82.839A - Other fracture of upper and lower end of unspecified fibula, initial encounter for closed fracture Status: Acute (2) Glioblastoma multiforme of brain ICD Code: C71.9 - Glioblastoma multiforme of brain Status: Chronic (3) Seizure ICD Code: R56.9 - Seizure Status: Acute Assessment and Plan Ms. Betancur is a 67-year-old female with a history of glioblastoma multiforme who presents to the emergency department after she fell on her right side sustaining a proximal fibula fracture on the right. Right-sided fibular fracture -Images reviewed. Likely nonsurgical. -We will obtain PT evaluation. PT recommends SNF. However, patient's is an excellent caregiver and he would like to take her home with home health instead. We will provide a form 3008 which can be used for SNF admission should patient/ decide later to go to SNF. -Acetaminophen and Early for pain management. Glioblastoma multiforme Seizure disorder -Continue Vimpat. -Reviewed previous Oncology note - indeed she was diagnosed with GBM. However , the fact that it was diagnosed in 2003 raises the question of alternate diagnosis of her brain tumor in 2003. Dementia Hyperlipidemia - Continue Donepezil, Lipitor. - Patient to follow up with Neurology in the outpatient setting. Full code. Lovenox. Problem Qualifiers (1) Fracture of proximal end of fibula: Qualified Codes: S82.831A - Other fracture of upper and lower end of right fibula, initial encounter for closed fracture Flako Blancas DO Jan 25, 2018 08:23
[2018-01-25] MEDS ORDERED: PANTOPRAZOLE SOD 20 MG DELAYED RELEASE TAB PO SCH (09:00)
[2018-01-25] MEDS ORDERED: MULTIVITAMIN TAB PO SCH (09:00)
[2018-01-25] MEDS ORDERED: CHOLECALCIFEROL (VIT D3) 1000 UNIT TAB PO SCH (09:00)
[2018-01-25] MEDS ORDERED: CYANOCOBALAMIN 1,000 MCG TAB PO SCH (09:00)
[2018-01-25 12:00] VITALS: BP 100/56; PULSE 89; RESP 19; TEMP 96.9; O2SAT 97
[2018-01-25] MEDS ORDERED: NORC5TAB PO (12:34)
--- NOTE | 2018-01-25 12:41 | HHI.FF ---
Face to Face Verification Diagnosis: (1) Glioblastoma multiforme of brain (2) Seizure disorder (3) Fracture of proximal end of fibula Physical Therapy Order: Evaluate and Treat, Improve ambulation, Strength and gait training Home Health Nursing Order: Medical education Signs/symptoms of disease process Medication education-adverse effect Nursing assessment with vital signs I have seen patient Kelsy Betancur on 01/25/18. My clinical findings support the need for the requested home health care services because: Ltd mobility - disease progression Deconditioned w/ increased weakness Limited ability to care for self Need for psychosocial assistance Impaired cognition/judgement High risk of falls Infection w/ risk of complications I certify that my clinical findings support that this patient is homebound because: Impaired cognitive ability/safety Unsteady gait/balance Unsafe to leave home unassisted Need for psychosocial assistance [id number] bed/chair Unable to use public transportation Flako Blancas DO Jan 25, 2018 12:41
== END 2018-01-25 16:57 | disposition home health service (06) ==
LOC: PHED 09:18 → PHEDA 12:08 → PH3A 13:15
PROVIDERS: ADMIT Hospitalist; ATTEND Hospitalist
DX: S82.831A Other fracture of upper and lower end of right fibula, initial encounter for closed fracture (principal); C71.9 Malignant neoplasm of brain, unspecified; R53.1 Weakness; R26.2 Difficulty in walking, not elsewhere classified; E78.5 Hyperlipidemia, unspecified; M25.561 Pain in right knee; E78.00 Pure hypercholesterolemia, unspecified; K21.9 Gastro-esophageal reflux disease without esophagitis; I10 Essential (primary) hypertension; W18.30XA Fall on same level, unspecified, initial encounter; M19.90 Unspecified osteoarthritis, unspecified site; F03.90 Unspecified dementia, unspecified severity, without behavioral disturbance, psychotic disturbance, mood disturbance, and anxiety; Z79.899 Other long term (current) drug therapy; G40.909 Epilepsy, unspecified, not intractable, without status epilepticus; Z86.73 Personal history of transient ischemic attack (TIA), and cerebral infarction without residual deficits
CPT/HCPCS: 29515; 70450; 70553; 73564; 73590; 80053; 81001; 85025; 96372; 96374; 97110; 97163; 97530; 99285; A9579; G0378; G8987; G8988; J1650; J2270; P9612